=== PATIENT | male | born 1960 | race American Indian/Alaskan Native ===

== ENCOUNTER 2017-10-25 15:15 | Inpatient (IN) | payer OTHER ==
[2017-10-25] MEDS ORDERED: LASIX IV ONE (17:23)
[2017-10-25 17:42] LABS: Basophils # (Auto) 0.1 K/mm3 (0.0-0.1); Basophils % (Auto) 0.4 % (0.0-1.8); Eosinophils # (Auto) 0.1 K/mm3 (0.0-0.4); Eosinophils % (Auto) 0.9 % (0.0-4.3); Hematocrit 39.3 % (35.5-45.6); Hemoglobin 12.9 gm/dl (11.8-15.2); Lymphocytes % (Auto) 6.5 % (13.4-35.0); Mean Corpuscular HGB Conc 33 % (32-34); Mean Corpuscular Hemoglobin 28 pg (28-32); Mean Corpuscular Volume 85 fl (84-94); Monocytes # (Auto) 1.6 K/mm3 (0.0-0.8); Monocytes % (Auto) 10.9 % (0.0-7.3); Platelet Count 328 K/mm3 (140-440); Red Blood Count 4.65 M/mm3 (3.65-5.03); Red Cell Distribution Width 15.1 % (13.2-15.2)
[2017-10-25 17:44] LABS: BUN/Creatinine Ratio 32; Blood Urea Nitrogen 19 mg/dL (9-20); Calcium 9.1 mg/dL (8.4-10.2); Hemolysis Index 87
--- NOTE | 2017-10-25 18:19 | Emergency Department Report ---
ED Shortness of Breath HPI - General Chief Complaint: Dyspnea/Respdistress Stated Complaint: SOB Time Seen by Provider: 10/25/17 16:54 Source: patient Mode of arrival: Ambulatory Limitations: No Limitations - History of Present Illness Initial Comments: 57-year-old male with a past medical history CHF, atrial fibrillation, CAD/[place], hypertension, and AICD presents to the hospital from the cost estimating clerk's office for admission for continued shortness of breath despite multiple recent hospitalizations or outpatient treatment. Patient presents to the hospital with a room air sat of 89% in some mild respiratory distress. He does not take oxygen at home. O2 sat increases to 96-98% on 2 L of oxygen. Positive cough that is "dark in color". Patient denies chest pain, calf tenderness, or leg edema. Patient was sent to the ER by Dr Love for direct admit. His bed was reassigned and therefore patient presented to the ED. - Related Data Home Medications Medication Instructions Recorded Confirmed Last Taken Amlodipine Besylate [Amlodipine 10 mg PO DAILY 05/11/14 05/11/14 05/10/14 Besylate] Ascorbic Acid [Vitamin C] 1,000 mg PO DAILY 05/11/14 05/11/14 05/10/14 Carvedilol [Carvedilol] 12.5 mg PO BID 05/11/14 05/11/14 05/10/14 Digoxin [Digox] 250 mcg PO DAILY 05/11/14 05/11/14 05/10/14 Furosemide [Furosemide] 40 mg PO DAILY 05/11/14 05/11/14 05/10/14 Hydralazine HCl [Apresoline TAB] 50 mg PO BID 05/11/14 05/11/14 05/10/14 Lisinopril [Lisinopril] 20 mg PO BID 05/11/14 05/11/14 05/10/14 Potassium Chloride [Klor-Con 10] 10 meq PO BID 05/11/14 05/11/14 05/10/14 Pravastatin Sodium [Pravastatin 40 mg PO QPM 05/11/14 05/11/14 05/10/14 Sodium] Sotalol HCl [Sotalol] 80 mg PO BID 05/11/14 05/11/14 05/10/14 Ubidecarenone [Coq-10] 10 mg PO DAILY 05/11/14 05/11/14 05/10/14 Vitamin B Complex [Super B-50 1 tab PO DAILY 05/11/14 05/11/14 05/10/14 Complex] Warfarin Sodium [Warfarin Sodium] 5 mg PO 3XW 05/11/14 05/11/14 05/07/14 Warfarin Sodium [Warfarin Sodium] 7 mg PO 4XW 05/11/14 05/11/14 05/06/14 Previous Rx's Medication Instructions Recorded Last Taken Type Meclizine [Antivert] 25 mg PO TID PRN #20 tablet 08/07/16 Unknown Rx Allergies Allergy/AdvReac Type Severity Reaction Status Date / Time No Known Allergies Allergy Verified 05/11/14 10:52 ED Review of Systems ROS: Stated complaint: SOB Other details as noted in HPI Comment: All other systems reviewed and negative Other: Constitutional: No fevers chills or weight loss Eyes: No eye pain visual changes or discharge ENT: No ear pain or throat pain Neck: Denies pain Respiratory: as per hpi Cardiovascular: Denies chest pain, palpitations, syncope GI: Denies abdominal pain, nausea, vomiting, diarrhea : Denies dysuria Musculoskeletal: Denies back pain, joint swelling Skin: Denies rash, lesions, erythema Neurologic: Denies headache, numbness, weakness Psychiatric: Denies suicidal ideation, hallucinations ED Past Medical Hx - Past Medical History Previous Medical History?: Yes Hx Hypertension: Yes Hx Heart Attack/AMI: Yes (1999) Hx Congestive Heart Failure: Yes Additional medical history: A-FIB - Surgical History Past Surgical History?: Yes Hx Pacemaker: Yes (icd 2006) - Social History Smoking Status: Never Smoker Substance Use Type: Alcohol - Medications Home Medications: Home Medications Medication Instructions Recorded Confirmed Last Taken Type Amlodipine Besylate [Amlodipine 10 mg PO DAILY 05/11/14 05/11/14 05/10/14 History Besylate] Ascorbic Acid [Vitamin C] 1,000 mg PO DAILY 05/11/14 05/11/14 05/10/14 History Carvedilol [Carvedilol] 12.5 mg PO BID 05/11/14 05/11/14 05/10/14 History Digoxin [Digox] 250 mcg PO DAILY 05/11/14 05/11/14 05/10/14 History Furosemide [Furosemide] 40 mg PO DAILY 0705/11/14 05/10/14 History Hydralazine HCl [Apresoline TAB] 50 mg PO BID 05/11/14 05/11/14 05/10/14 History Lisinopril [Lisinopril] 20 mg PO BID 05/11/14 05/11/14 05/10/14 History Potassium Chloride [Klor-Con 10] 10 meq PO BID 05/11/14 05/11/14 05/10/14 History Pravastatin Sodium [Pravastatin 40 mg PO QPM 05/11/14 05/11/14 05/10/14 History Sodium] Sotalol HCl [Sotalol] 80 mg PO BID 05/11/14 05/11/14 05/10/14 History Ubidecarenone [Coq-10] 10 mg PO DAILY 05/11/14 05/11/14 05/10/14 History Vitamin B Complex [Super B-50 1 tab PO DAILY 05/11/14 05/11/14 05/10/14 History Complex] Warfarin Sodium [Warfarin Sodium] 5 mg PO 3XW 05/11/14 05/11/14 05/07/14 History Warfarin Sodium [Warfarin Sodium] 7 mg PO 4XW 05/11/14 05/11/14 05/06/14 History Meclizine [Antivert] 25 mg PO TID PRN #20 tablet 08/07/16 Unknown Rx ED Physical Exam - General Limitations: No Limitations - Other Other exam information: General: No limitations, patient is alert in no acute distress Head exam: Atraumatic, normocephalic Eyes exam: Normal appearance ENT: Moist mucous membrane, normal oropharynx Neck exam: Normal inspection, full range of motion, no meningismus nontender Respiratory exam: Diminished breath sounds right base, mild bilateral expiratory wheeze, mild tachypnea and accessory muscle use Cardiovascular: Normal rate and rhythm, normal heart sounds Abdomen: Soft, nondistended, and nontender, with normal bowel sounds, no rebound, or guarding Extremity: Full range of motion normal inspection no deformity, no calf tenderness or edema Back: Normal Inspection, full range of motion, no tenderness Neurologic: Alert, oriented x3, cranial nerves intact, no motor or sensory deficit Psychiatric: normal affect, normal mood Skin: Warm, dry, intact ED Course Vital Signs 10/25/17 16:18 Temperature 98.4 F Pulse Rate 96 H Respiratory 24 Rate Blood Pressure 143/81 O2 Sat by Pulse 89 Oximetry - Reevaluation(s) Reevaluation #1: 10/25/17 18:18 Lasix 80 mg ordered ED Medical Decision Making - Lab Data Result diagrams: 10/25/17 16:52 10/25/17 18:06 Lab Results 10/25/17 10/25/17 10/25/17 Range/Units 16:52 16:52 18:06 WBC 15.2 H (4.5-11.0) K/mm3 RBC 4.65 (3.65-5.03) M/mm3 Hgb 12.9 (11.8-15.2) gm/dl Hct 39.3 (35.5-45.6) % MCV 85 (84-94) fl MCH 28 (28-32) pg MCHC 33 (32-34) % RDW 15.1 (13.2-15.2) % Plt Count 328 (140-440) K/mm3 Lymph % (Auto) 6.5 L (13.4-35.0) % [place] % (Auto) 10.9 H (0.0-7.3) % Eos % (Auto) 0.9 (0.0-4.3) % Baso % (Auto) 0.4 (0.0-1.8) % Lymph # 1.0 L (1.2-5.4) K/mm3 [place] # 1.6 H (0.0-0.8) K/mm3 Eos # 0.1 (0.0-0.4) K/mm3 Baso # 0.1 (0.0-0.1) K/mm3 Seg Neutrophils % 81.3 H (40.0-70.0) % Seg Neutrophils # 12.3 H (1.8-7.7) K/mm3 PT 16.2 H (12.2-14.9) Sec. INR 1.23 H (0.87-1.13) APTT 39.4 H (24.2-36.6) Sec. Sodium 132 L (137-145) mmol/L Potassium 6.6 H* (3.6-5.0) mmol/L Chloride 88.5 L (98-107) mmol/L Carbon Dioxide 27 (22-30) mmol/L Anion Gap 23 mmol/L BUN 19 (9-20) mg/dL Creatinine 0.6 L (0.8-1.5) mg/dL Estimated GFR > 60 ml/min BUN/Creatinine Ratio 32 % Glucose 112 H (75-100) mg/dL Calcium 9.1 (8.4-10.2) mg/dL Total Creatine Kinase (55-170) units/L CK-MB (CK-2) (0.0-4.0) ng/mL CK-MB (CK-2) Rel Index (0-4) Troponin T (0.00-0.029) ng/mL NT-Pro-B Natriuret Pep (0-900) pg/mL 10/25/17 10/25/17 Range/Units 18:06 18:06 WBC (4.5-11.0) K/mm3 RBC (3.65-5.03) M/mm3 Hgb (11.8-15.2) gm/dl Hct (35.5-45.6) % MCV (84-94) fl MCH (28-32) pg MCHC (32-34) % RDW (13.2-15.2) % Plt Count (140-440) K/mm3 Lymph % (Auto) (13.4-35.0) % [place] % (Auto) (0.0-7.3) % Eos % (Auto) (0.0-4.3) % Baso % (Auto) (0.0-1.8) % Lymph # (1.2-5.4) K/mm3 [place] # (0.0-0.8) K/mm3 Eos # (0.0-0.4) K/mm3 Baso # (0.0-0.1) K/mm3 Seg Neutrophils % (40.0-70.0) % Seg Neutrophils # (1.8-7.7) K/mm3 PT (12.2-14.9) Sec. INR (0.87-1.13) APTT (24.2-36.6) Sec. Sodium (137-145) mmol/L Potassium 6.4 H* (3.6-5.0) mmol/L Chloride (98-107) mmol/L Carbon Dioxide (22-30) mmol/L Anion Gap mmol/L BUN (9-20) mg/dL Creatinine (0.8-1.5) mg/dL Estimated GFR ml/min BUN/Creatinine Ratio % Glucose (75-100) mg/dL Calcium (8.4-10.2) mg/dL Total Creatine Kinase 88 (55-170) units/L CK-MB (CK-2) 2.7 (0.0-4.0) ng/mL CK-MB (CK-2) Rel Index 3.0 (0-4) Troponin T < 0.010 (0.00-0.029) ng/mL NT-Pro-B Natriuret Pep 5652 H (0-900) pg/mL - EKG Data -: EKG Interpreted by Me (pvc's, ant q waves) EKG shows normal: sinus rhythm, axis (-18), QRS complexes (103), ST-T waves ( lat t inv and st depres, lvh) Rate: tachycardia (106) - EKG Data When compared to previous EKG there are: no significant change (compared to ) - Radiology Data Radiology results: image reviewed (cxr read by me: moderate right effusion, cmg) - Medical Decision Making Plan to admit pt for sob secondary to CHF with significant right pleural effusion Patient has hyperkalemia medication initiated with exception of calcium chloride since patient takes digoxin Hospitalist and cardiology informed - Differential Diagnosis chf, pe, pneumonia, effusion, mi, unstable angina Critical Care Time: No Critical care attestation.: If time is entered above; I have spent that time in minutes in the direct care of this critically ill patient, excluding procedure time. ED Disposition Clinical Impression: CHF exacerbation, Hyperkalemia, AICD (automatic cardioverter/defibrillator) present, Non-ischemic cardiomyopathy, Pleural effusion, right Disposition: OP ADMIT IP TO THIS HOSP Is pt being admited?: Yes Condition: Stable Time of Disposition: 18:57 (Dr Morris/hosp)
--- NOTE | 2017-10-25 18:31 | XRay Report ---
FINAL REPORT EXAM: XR CHEST 1V AP HISTORY: SOB TECHNIQUE: AP portable view of the chest PRIORS: None. FINDINGS: Lines, tubes, and devices: A dual lead left subclavian pacemaker terminates in the right atrium and right ventricle. Lungs and pleura: Trachea is normal in position. There is a large right pleural effusion encompassing 1/2 of the right hemithorax extending up the lateral chest wall to the apex. Findings suggest a partially loculated effusion. Underlying consolidation in the right base is not excluded. Left lung is clear of infiltrate, pleural effusion, vascular congestion, or pneumothorax. Cardiomediastinal silhouette: The heart is markedly enlarged. Other: Bony structures are intact. IMPRESSION: 1. Large right pleural effusion which is likely partially loculated. Underlying consolidation right base is not excluded. 2. Cardiomegaly
[2017-10-25 18:35] LABS: INR 1.23 (0.87-1.13)
[2017-10-25 18:41] LABS: Creatine Kinase MB 2.7 ng/mL (0.0-4.0)
[2017-10-25 18:47] LABS: Partial Thromboplastin Time 39.4 Sec. (24.2-36.6)
[2017-10-25] MEDS ORDERED: PROVENTIL IH ONE (18:51)
[2017-10-25] MEDS ORDERED: D50W (25GM) Syringe IV ONE (18:53)
[2017-10-25] MEDS ORDERED: KIONEX PO ONE (18:53)
[2017-10-25] MEDS ORDERED: SODIUM BICARBONATE IV ONE ×2 (18:53→19:00)
[2017-10-25] MEDS ORDERED: ZOFRAN IV PRN (19:58)
[2017-10-25] MEDS ORDERED: TYLENOL PO PRN (19:58)
[2017-10-25] MEDS ORDERED: PROVENTIL IH PRN (19:58)
--- NOTE | 2017-10-25 19:58 | History and Physical Report ---
History of Present Illness Chief complaint: I cant breathe History of present illness: 57 YO Male with CHF, Atrial Fib, HTN, [place], CAD, CHF presents to ED for evaluation. Pt Initially planned for direct admission at the request of Dr. Love, However patient became hypoxemic in triage with Sao2 of 88% and complained of worsening shortness of breath. Pt states that he has experienced persistent shortness of breath over the past 2 weeks with worsening symptoms over the past 4 days. Pt acknowledges productive cough with dark sputum. Pt denies fever, chills, palpitations, NVD, Syncope, unintentional weight loss, night sweats, CP, leg swelling, calf pain, prolonged travel/immobility, individual/family history of DVT/PE. Pt seen and evaluated in ED and found to have Acute Hypoxemic respiratory failure, suspected secondary to CHF as well as Right pleural effusion, and hyperkalemia. Pt treated with supportive care and admitted to telemetry. Cardiology team consulted in ED. Past History Past Medical History: acute [place], atrial fib, CAD, heart failure, hypertension Past Surgical History: Other (AICD) Social history: single. denies: smoking, alcohol abuse, prescription drug abuse Family history: hypertension Medications and Allergies Allergies Allergy/AdvReac Type Severity Reaction Status Date / Time No Known Allergies Allergy Verified 05/11/14 10:52 Home Medications Medication Instructions Recorded Confirmed Last Taken Type Amlodipine Besylate [Amlodipine 10 mg PO DAILY 05/11/14 10/25/17 05/10/14 History Besylate] Ascorbic Acid [Vitamin C] 1,000 mg PO DAILY 05/11/14 10/25/17 05/10/14 History Carvedilol [Carvedilol] 12.5 mg PO BID 05/11/14 10/25/17 05/10/14 History Digoxin [Digox] 250 mcg PO DAILY 05/11/14 10/25/17 05/10/14 History Furosemide [Furosemide] 40 mg PO DAILY 05/11/14 10/25/17 05/10/14 History Hydralazine HCl [Apresoline TAB] 50 mg PO BID 05/11/14 10/25/17 05/10/14 History Lisinopril [Lisinopril] 20 mg PO BID 05/11/14 10/25/17 05/10/14 History Potassium Chloride [Klor-Con 10] 10 meq PO BID 05/11/14 10/25/17 05/10/14 History Pravastatin Sodium [Pravastatin 40 mg PO QPM 05/11/14 10/25/17 05/10/14 History Sodium] Sotalol HCl [Sotalol] 80 mg PO BID 05/11/14 10/25/17 05/10/14 History Ubidecarenone [Coq-10] 10 mg PO DAILY 05/11/14 10/25/17 05/10/14 History Vitamin B Complex [Super B-50 1 tab PO DAILY 05/11/14 10/25/17 05/10/14 History Complex] Warfarin Sodium [Warfarin Sodium] 5 mg PO 3XW 05/11/14 10/25/17 05/07/14 History Meclizine [Antivert] 25 mg PO TID PRN #20 tablet 08/07/16 10/25/17 Unknown Rx Review of Systems Constitutional: no weight loss, no weight gain, no fever, no chills Ears, nose, mouth and throat: no ear pain, no ear discharge, no tinnitis, no decreased hearing, no nose pain Cardiovascular: shortness of breath, leg edema, no chest pain, no orthopnea, no palpitations Respiratory: cough with sputum, no dyspnea on exertion, no wheezing, no pleurisy , no pain on inspiration Gastrointestinal: no abdominal pain, no nausea, no vomiting, no diarrhea Genitourinary Male: no hematuria, no flank pain, no discharge, no urinary frequency, no urinary hesitancy Rectal: no pain, no incontinence, no bleeding Musculoskeletal: no neck stiffness, no neck pain, no shooting arm pain, no arm numbness/tingling, no low back pain Integumentary: no rash, no pruritis, no redness, no sores, no wounds Neurological: no head injury, no transient paralysis, no paralysis, no weakness , no parathesias, no numbness Psychiatric: no anxiety, no memory loss, no change in sleep habits, no sleep disturbances, no insomnia, no hypersomnia Endocrine: no cold intolerance, no heat intolerance, no polyphagia, no excessive thirst, no polydipsia, no polyuria Hematologic/Lymphatic: no easy bruising, no easy bleeding, no lymphadenopathy, no lymphedema Allergic/Immunologic: no urticaria, no allergic rhinitis, no wheezing, no persistent infections Exam - Constitutional Vitals: Temp Pulse Resp BP Pulse Ox 98.4 F 96 H 24 143/81 89 10/25/17 16:18 10/25/17 16:18 10/25/17 16:18 10/25/17 16:18 10/25/17 16:18 General appearance: Present: mild distress - EENT Eyes: Present: PERRL ENT: hearing intact, clear oral mucosa - Neck Neck: Present: supple, normal ROM - Respiratory Respiratory effort: labored Respiratory: bilateral: diminished, rales - Cardiovascular Rhythm: irregularly irregular - Extremities Extremities: pulses symmetrical, No edema Extremity abnormal: edema Peripheral Pulses: within normal limits - Abdominal General gastrointestinal: Present: soft, non-tender, non-distended, normal bowel sounds Male genitourinary: Present: normal - Integumentary Integumentary: Present: clear, warm, dry - Musculoskeletal Musculoskeletal: gait normal, strength equal bilaterally - Psychiatric Psychiatric: appropriate mood/affect, intact judgment & insight - Neurologic Neurologic: CNII-XII intact, moves all extremities Results - Labs CBC & Chem 7: 10/25/17 16:52 10/25/17 18:06 Labs: Abnormal lab results 10/25/17 10/25/17 10/25/17 Range/Units 16:52 16:52 18:06 WBC 15.2 H (4.5-11.0) K/mm3 Lymph % (Auto) 6.5 L (13.4-35.0) % [place] % (Auto) 10.9 H (0.0-7.3) % Lymph # 1.0 L (1.2-5.4) K/mm3 [place] # 1.6 H (0.0-0.8) K/mm3 Seg Neutrophils % 81.3 H (40.0-70.0) % Seg Neutrophils # 12.3 H (1.8-7.7) K/mm3 PT 16.2 H (12.2-14.9) Sec. INR 1.23 H (0.87-1.13) APTT 39.4 H (24.2-36.6) Sec. Sodium 132 L (137-145) mmol/L Potassium 6.6 H* (3.6-5.0) mmol/L Chloride 88.5 L (98-107) mmol/L Creatinine 0.6 L (0.8-1.5) mg/dL Glucose 112 H (75-100) mg/dL NT-Pro-B Natriuret Pep (0-900) pg/mL 10/25/17 10/25/17 Range/Units 18:06 18:06 WBC (4.5-11.0) K/mm3 Lymph % (Auto) (13.4-35.0) % [place] % (Auto) (0.0-7.3) % Lymph # (1.2-5.4) K/mm3 [place] # (0.0-0.8) K/mm3 Seg Neutrophils % (40.0-70.0) % Seg Neutrophils # (1.8-7.7) K/mm3 PT (12.2-14.9) Sec. INR (0.87-1.13) APTT (24.2-36.6) Sec. Sodium (137-145) mmol/L Potassium 6.4 H* (3.6-5.0) mmol/L Chloride (98-107) mmol/L Creatinine (0.8-1.5) mg/dL Glucose (75-100) mg/dL NT-Pro-B Natriuret Pep 5652 H (0-900) pg/mL Assessment and Plan - Patient Problems (1) CHF exacerbation Current Visit: Yes Status: Acute Qualifiers: Congestive heart failure type: systolic Qualified Code(s): I50.23 - Acute on chronic systolic (congestive) heart failure Plan to address problem: Cardiology consulted, fluid restriction, monitor uop q shift, afterload reduction, admit to telemetry, cardiac enzymes, ekg,supplemental oxygen, diuresis, echo, (2) Acute hypoxemic respiratory failure Current Visit: Yes Status: Acute Plan to address problem: Supplemental oxygen, Nebulizer therapy, NIPPV as clinically indicated, pulmonary toilet, diuresis, (3) Pneumonia Current Visit: Yes Status: Suspected Qualifiers: Laterality: right Plan to address problem: IV ABX, supplemental oxygen, nebulizer therapy for suspected pneumonia (4) Hyperkalemia Current Visit: Yes Status: Acute Plan to address problem: Calcium chloride, lasix therapy, NO EKG changes, repeat bmp, (5) Pleural effusion, right Current Visit: Yes Status: Acute Plan to address problem: Chest X ray, diuresis, supportive care, repeat chest imaging, will consider Right Lateral Decubitus Chest xray versus CT chest in AM, serial physical exam. (6) Atrial fibrillation Current Visit: Yes Status: Acute Qualifiers: Atrial fibrillation type: chronic Qualified Code(s): I48.2 - Chronic atrial fibrillation Plan to address problem: Telemetry monitoring, Resume therapeutic anticoagulation, continue rate control therapy (7) DVT prophylaxis Current Visit: Yes Status: Acute
[2017-10-25] MEDS ORDERED: COUMADIN PO SCH (21:00)
--- NOTE | 2017-10-25 21:04 | Consultation ---
History of Present Illness Consult date: 10/25/17 Consult reason: congestive heart failure, shortness of breath History of present illness: 57-year-old male with a past medical history CHF, parox atrial fibrillation, CAD /[place], hypertension, and AICD presents to the hospital from the mortgage clerk's office for admission for continued shortness of breath despite multiple recent hospitalizations or outpatient treatment. Patient presents to the hospital with a room air sat of 89% in some mild respiratory distress. He does not take oxygen at home. O2 sat increases to 96-98% on 2 L of oxygen. Positive cough that is "dark in color". Patient denies chest pain, calf tenderness, or leg edema. Patient was sent to the ER by Dr Love for direct admit. His bed was reassigned and therefore patient presented to the ED. Labs revealed wbc of 15k and potassium of 6.4 Past History Past Medical History: acute [place], atrial fib, heart failure, hypertension Past Surgical History: Other (aicd) Medications and Allergies Allergies Allergy/AdvReac Type Severity Reaction Status Date / Time No Known Allergies Allergy Verified 05/11/14 10:52 Home Medications Medication Instructions Recorded Confirmed Last Taken Type Amlodipine Besylate [Amlodipine 10 mg PO DAILY 05/11/14 10/25/17 05/10/14 History Besylate] Ascorbic Acid [Vitamin C] 1,000 mg PO DAILY 05/11/14 10/25/17 05/10/14 History Carvedilol [Carvedilol] 12.5 mg PO BID 05/11/14 10/25/17 05/10/14 History Digoxin [Digox] 250 mcg PO DAILY 05/11/14 10/25/17 05/10/14 History Furosemide [Furosemide] 40 mg PO DAILY 05/11/14 10/25/17 05/10/14 History Hydralazine HCl [Apresoline TAB] 50 mg PO BID 05/11/14 10/25/17 05/10/14 History Lisinopril [Lisinopril] 20 mg PO BID 05/11/14 10/25/17 05/10/14 History Potassium Chloride [Klor-Con 10] 10 meq PO BID 05/11/14 10/25/17 05/10/14 History Pravastatin Sodium [Pravastatin 40 mg PO QPM 05/11/14 10/25/17 05/10/14 History Sodium] Sotalol HCl [Sotalol] 80 mg PO BID 05/11/14 10/25/17 05/10/14 History Ubidecarenone [Coq-10] 10 mg PO DAILY 05/11/14 10/25/17 05/10/14 History Vitamin B Complex [Super B-50 1 tab PO DAILY 05/11/14 10/25/17 05/10/14 History Complex] Warfarin Sodium [Warfarin Sodium] 5 mg PO 3XW 05/11/14 10/25/17 05/07/14 History Meclizine [Antivert] 25 mg PO TID PRN #20 tablet 08/07/16 10/25/17 Unknown Rx Active Meds: Active Medications Acetaminophen (Tylenol) 650 mg PO Q4H PRN PRN Reason: Pain MILD(1-3)/Fever >100.5/DUNCAN Albuterol (Proventil) 2.5 mg IH Q4HRT PRN PRN Reason: Shortness Of Breath Amlodipine Besylate (Norvasc) 10 mg PO DAILY [facility] Ascorbic Acid (Vitamin C) 1,000 mg PO QDAY [facility] Carvedilol (Coreg) 12.5 mg PO BID [facility] Digoxin (Lanoxin) 0.25 mg PO DAILY [facility] Famotidine (Pepcid) 10 mg PO BID [facility] Furosemide (Lasix) 40 mg IV BID@0600,1800 [facility] Hydralazine HCl (Apresoline) 50 mg PO BID [facility] Lisinopril (Zestril) 20 mg PO BID [facility] Meclizine HCl (Antivert) 25 mg PO TID PRN PRN Reason: Vertigo Miscellaneous Medication (Ubidecarenone [Coq-10]) 10 mg PO DAILY [facility] Ondansetron HCl (Zofran) 4 mg IV Q8H PRN PRN Reason: N/V unrelieved by Reglan Pravastatin Sodium (Pravachol) 40 mg PO QPM [facility] Sotalol HCl (Betapace) 80 mg PO Q12HR [facility] Vitamin B Complex/Vitamin C ([place] With C) 1 each PO QDAY [facility] Warfarin Sodium (Coumadin) 7.5 mg PO DAILY@1700 [facility] Review of Systems Constitutional: no fever, no chills Eyes: bilateral: blurred vision (denies) Ears, nose, mouth and throat: no epistaxis Cardiovascular: no palpitations, no syncope Respiratory: no hemoptysis Gastrointestinal: no abdominal pain Genitourinary Male: no flank pain Musculoskeletal: no frequent falls Integumentary: no rash Neurological: no seizures Psychiatric: no anxiety Endocrine: no cold intolerance, no heat intolerance Hematologic/Lymphatic: no easy bruising Allergic/Immunologic: no urticaria Physical Examination Vital Signs Temp Pulse Resp BP Pulse Ox 98.4 F 96 H 24 143/81 89 10/25/17 16:18 10/25/17 16:18 10/25/17 16:18 10/25/17 16:18 10/25/17 16:18 General appearance: no acute distress HEENT: Positive: PERRL, Normocephaly Neck: Positive: neck supple, Carotid Upstroke (2+ bilat). Negative: JVD/HJR, Bruit Cardiac: Positive: Regular Rhythm, Other (occ ectopy). Negative: S3, Audible Murmur Lungs: Positive: Decreased Breath Sounds (rt base) Neuro: Positive: Grossly Intact Abdomen: Positive: Soft. Negative: Tender Skin: Positive: Clear Musculoskeletal: Normal Range of Motion Extremities: Present: Other (peripheral pulses intact). Absent: Clubbing, Cyanosis Results 10/25/17 16:52 10/25/17 18:06 Cardiac Enzymes 10/25/17 Range/Units 18:06 CK-MB (CK-2) 2.7 (0.0-4.0) ng/mL Coagulation 10/25/17 Range/Units 18:06 PT 16.2 H (12.2-14.9) Sec. INR 1.23 H (0.87-1.13) APTT 39.4 H (24.2-36.6) Sec. CBC 10/25/17 Range/Units 16:52 WBC 15.2 H (4.5-11.0) K/mm3 RBC 4.65 (3.65-5.03) M/mm3 Hgb 12.9 (11.8-15.2) gm/dl Hct 39.3 (35.5-45.6) % Plt Count 328 (140-440) K/mm3 Lymph # 1.0 L (1.2-5.4) K/mm3 [place] # 1.6 H (0.0-0.8) K/mm3 Eos # 0.1 (0.0-0.4) K/mm3 Baso # 0.1 (0.0-0.1) K/mm3 Comprehensive Metabolic Panel 10/25/17 10/25/17 Range/Units 16:52 18:06 Sodium 132 L (137-145) mmol/L Potassium 6.6 H* 6.4 H* (3.6-5.0) mmol/L Chloride 88.5 L (98-107) mmol/L Carbon Dioxide 27 (22-30) mmol/L BUN 19 (9-20) mg/dL Creatinine 0.6 L (0.8-1.5) mg/dL Glucose 112 H (75-100) mg/dL Calcium 9.1 (8.4-10.2) mg/dL EKG interpretations - Telemetry EKG Rhythm: Sinus Rhythm - EKG Supraventricular dysrhythmia: atrial premature complexe Chamber hypertrophy or enlargement: left ventricular hypertro Repolarization changes or abnormalities: repolarization abn secondary to ventricular hypertrophy Assessment and Plan acute/chronic systolic heart failure with reduced lv ef s/p aicd implantation parox atrial fibrillation, ppresently in sinus rhythm. tele: 18 beat run nonsustained vt hyperkalemia right pleural effusion Plan: treat hyperkalemia has has been done. continue anticoagulation. diuresis. ?thoracentesis check digoxin level
[2017-10-25] MEDS ORDERED: NON-FORMULARY (Hydralazine Hcl [Apresoline Tab] 50 MG) PO SCH (22:00)
[2017-10-25] MEDS ORDERED: [UNRECOGNIZED DRUG - OTHER] PO SCH (22:00)
[2017-10-25] MEDS: COUMADIN PO SCH (22:26)
[2017-10-25] MEDS: PEPCID PO SCH (22:26)
[2017-10-25] MEDS: BETAPACE PO SCH (22:26)
[2017-10-25] MEDS: COREG PO SCH (22:27)
[2017-10-25] MEDS: ZESTRIL PO SCH (22:27)
[2017-10-25] MEDS: APRESOLINE PO SCH (22:29)
[2017-10-26] MEDS: LASIX IV SCH ×2 (06:17→17:51)
[2017-10-26 06:55] LABS: INR 1.3 (0.87-1.13)
[2017-10-26] MEDS ORDERED: ZITHROMAX 500 MG in NACL 0.9% 250ML 250 ML IV SCH ×2 (08:00→09:00)
[2017-10-26] MEDS ORDERED: ROCEPHIN/NS 1 GM/50 ML 1 GM/50 ML BAG IV SCH (08:00)
[2017-10-26] MEDS: BETAPACE PO SCH ×2 (09:25→21:29)
[2017-10-26] MEDS: PEPCID PO SCH ×2 (09:27→21:29)
[2017-10-26] MEDS: COREG PO SCH ×2 (09:27→21:30)
[2017-10-26] MEDS: VITAMIN C PO SCH (09:27)
[2017-10-26] MEDS: APRESOLINE PO SCH ×2 (09:27→21:30)
[2017-10-26] MEDS: ZESTRIL PO SCH ×2 (09:28→21:30)
[2017-10-26] MEDS: NORVASC PO SCH (09:28)
[2017-10-26 09:56] LABS: BUN/Creatinine Ratio 22; Blood Urea Nitrogen 13 mg/dL (9-20); Hemolysis Index 4
[2017-10-26] MEDS ORDERED: LANOXIN PO SCH (10:00)
[2017-10-26] MEDS ORDERED: UBIDECARENONE 10 MG PO SCH (10:00)
[2017-10-26] MEDS ORDERED: NON-FORMULARY (Ascorbic Acid [Vitamin C] 1,000 MG) PO SCH (10:00)
[2017-10-26] MEDS ORDERED: VITAMIN B COMPLEX PO SCH (10:00)
[2017-10-26] MEDS ORDERED: COUMADIN PO SCH (10:00)
[2017-10-26] MEDS ORDERED: cefTRIAXone 1 GM in NACL 0.9% 20 ML IV SCH (10:00)
--- NOTE | 2017-10-26 10:35 | Consultation ---
History of Present Illness Consult date: 10/26/17 Requesting physician: HODA WALTERS Reason for consult: pleural effusion History of present illness: 57 y/o female with CHF, admitted with worsening shortness of breath. Found to have large right sided pleural effusion. Unfortunately I am not able to see the actual films. Per report, rads says it is partially loculated. Patient states today that he feels much better, less short of breath. Past History Past Medical History: acute AR, atrial fib, heart failure, hypertension Past Surgical History: Other (aicd) Social history: single. denies: smoking, alcohol abuse, prescription drug abuse Family history: hypertension Medications and Allergies Allergies Allergy/AdvReac Type Severity Reaction Status Date / Time No Known Allergies Allergy Verified 05/11/14 10:52 Home Medications Medication Instructions Recorded Confirmed Last Taken Type Amlodipine Besylate [Amlodipine 10 mg PO DAILY 05/11/14 10/25/17 05/10/14 History Besylate] Ascorbic Acid [Vitamin C] 1,000 mg PO DAILY 05/11/14 10/25/17 05/10/14 History Carvedilol [Carvedilol] 12.5 mg PO BID 05/11/14 10/25/17 05/10/14 History Digoxin [Digox] 250 mcg PO DAILY 05/11/14 10/25/17 05/10/14 History Furosemide [Furosemide] 40 mg PO DAILY 05/11/14 10/25/17 05/10/14 History Hydralazine HCl [Apresoline TAB] 50 mg PO BID 05/11/14 10/25/17 05/10/14 History Lisinopril [Lisinopril] 20 mg PO BID 05/11/14 10/25/17 05/10/14 History Potassium Chloride [Klor-Con 10] 10 meq PO BID 05/11/14 10/25/17 05/10/14 History Pravastatin Sodium [Pravastatin 40 mg PO QPM 05/11/14 10/25/17 05/10/14 History Sodium] Sotalol HCl [Sotalol] 80 mg PO BID 05/11/14 10/25/17 05/10/14 History Ubidecarenone [Coq-10] 10 mg PO DAILY 05/11/14 10/25/17 05/10/14 History Vitamin B Complex [Super B-50 1 tab PO DAILY 05/11/14 10/25/17 05/10/14 History Complex] Warfarin Sodium [Warfarin Sodium] 5 mg PO 3XW 05/11/14 10/25/17 05/07/14 History Meclizine [Antivert] 25 mg PO TID PRN #20 tablet 08/07/16 10/25/17 Unknown Rx Active Meds: Active Medications Acetaminophen (Tylenol) 650 mg PO Q4H PRN PRN Reason: Pain MILD(1-3)/Fever >100.5/[place] Albuterol (Proventil) 2.5 mg IH Q4HRT PRN PRN Reason: Shortness Of Breath Amlodipine Besylate (Norvasc) 10 mg PO DAILY [facility] Last Admin: 10/26/17 09:28 Dose: 10 mg Ascorbic Acid (Vitamin C) 1,000 mg PO QDAY [facility] Last Admin: 10/26/17 09:27 Dose: 1,000 mg Carvedilol (Coreg) 12.5 mg PO BID [facility] Last Admin: 10/26/17 09:27 Dose: 12.5 mg Digoxin (Lanoxin) 0.25 mg PO DAILY [facility] Last Admin: 10/26/17 09:26 Dose: 0.25 mg Famotidine (Pepcid) 10 mg PO BID [facility] Last Admin: 10/26/17 09:27 Dose: 10 mg Furosemide (Lasix) 40 mg IV BID@0600,1800 [facility] Last Admin: 10/26/17 06:17 Dose: 40 mg Hydralazine HCl (Apresoline) 50 mg PO BID [facility] Last Admin: 10/26/17 09:27 Dose: 50 mg Levofloxacin/Dextrose (Levaquin 750mg/150ml) 750 mg in 150 mls @ 100 mls/hr IV Q24HR [facility] PRN Reason: Protocol Lisinopril (Zestril) 20 mg PO BID [facility] Last Admin: 10/26/17 09:28 Dose: 20 mg Meclizine HCl (Antivert) 25 mg PO TID PRN PRN Reason: Vertigo Ondansetron HCl (Zofran) 4 mg IV Q8H PRN PRN Reason: N/V unrelieved by [facility] Pravastatin Sodium (Pravachol) 40 mg PO QPM [facility] Sotalol HCl (Betapace) 80 mg PO Q12HR [facility] Last Admin: 10/26/17 09:25 Dose: 80 mg Vitamin B Complex/Vitamin C ([place]bee With C) 1 each PO QDAY [facility] Warfarin Sodium (Coumadin) 7.5 mg PO DAILY@1700 [facility] Last Admin: 10/25/17 22:26 Dose: 7.5 mg Physical Examination Vital signs: Vital Signs Temp Pulse Resp BP Pulse Ox 98.4 F 96 H 24 143/81 89 10/25/17 16:18 10/25/17 16:18 10/25/17 16:18 10/25/17 16:18 10/25/17 16:18 General appearance: no acute distress, alert Eyes: non-icteric ENT: oropharynx moist Neck: supple Ascultation: Right: diminished breath sounds, rales (base), Left: clear Results - Laboratory Findings CBC and BMP: 10/25/17 16:52 10/26/17 09:32 PT/INR, D-dimer PT 16.9 Sec. (12.2-14.9) H 10/26/17 06:14 INR 1.30 (0.87-1.13) H 10/26/17 06:14 Abnormal lab findings: Abnormal Labs 10/25/17 10/25/17 10/25/17 16:52 16:52 18:06 WBC 15.2 H Lymph % (Auto) 6.5 L [place] % (Auto) 10.9 H Lymph # 1.0 L [place] # 1.6 H Seg Neutrophils % 81.3 H Seg Neutrophils # 12.3 H PT 16.2 H INR 1.23 H APTT 39.4 H Sodium 132 L Potassium 6.6 H* Chloride 88.5 L Carbon Dioxide Creatinine 0.6 L Glucose 112 H NT-Pro-B Natriuret Pep 10/25/17 10/25/17 10/26/17 18:06 18:06 06:14 WBC Lymph % (Auto) [place] % (Auto) Lymph # [place] # Seg Neutrophils % Seg Neutrophils # PT 16.9 H INR 1.30 H APTT Sodium Potassium 6.4 H* Chloride Carbon Dioxide Creatinine Glucose NT-Pro-B Natriuret Pep 5652 H 10/26/17 09:32 WBC Lymph % (Auto) [place] % (Auto) Lymph # [place] # Seg Neutrophils % Seg Neutrophils # PT INR APTT Sodium Potassium Chloride 94.0 L Carbon Dioxide 34 H D Creatinine 0.6 L Glucose 129 H NT-Pro-B Natriuret Pep Assessment and Plan 57 y/o female with CHF and right sided pleural effusion 1. Need to call radiology and ask why film cannot be seen in [employer] 2. May need CT of chest if truly loculated, hold for now as he is feeling better 3. Not opposed to thoracentesis, but would suggest diuresis first. Appears that patient is tolerating this. Will repeat CXR tomorrow. If this is infected , which it could be, would need chest tube placement, but will hold on any invasive therapy for now.
[2017-10-26] MEDS: ALLBEE WITH C PO SCH (10:56)
[2017-10-26] MEDS: LEVAQUIN 750MG/150ML 750 MG/150 ML BAG IV SCH (10:58)
[2017-10-26 11:16] LABS: BUN/Creatinine Ratio 20; Blood Urea Nitrogen 14 mg/dL (9-20); Calcium 9.3 mg/dL (8.4-10.2); Hemolysis Index 11
--- NOTE | 2017-10-26 12:56 | Cat Scan Report ---
CT scan of chest without IV contrast: History: Right-sided loculated pleural effusion. Findings: There is no endobronchial lesion identified. No mediastinal adenopathy. No pericardial effusion. There is extensive pleural thickening noted along the right lateral chest extending to the apex and right mediastinum. Loculated areas of pleural fluid is identified along the pleural thickening. No definite consolidation or mass in underlying lung parenchyma. Left lung appears unremarkable. Impression: Extensive right pleural thickening with areas of loculation of fluid along pleural thickening. Grossly adjacent liver spleen and pancreas appears unremarkable.
--- NOTE | 2017-10-26 15:22 | Progress Note ---
Assessment and Plan Assessment and plan: (1) CHF exacerbation - On IV Lasix, and continue appropriate CHF medications - Cardiology following (2) Acute hypoxemic respiratory failure - Likely due to the large right pleural effusion versus CHF - Pulmonary consulted and patient may need to thoracentesis (3) Pneumonia - Patient is on IV antibiotics (4) Hyperkalemia - Treated with hyperkalemia (5) Pleural effusion, right - Pulmonary consulted - CT chest done for further evaluation of this effusion (6) Atrial fibrillation - Patient is on anticoagulation (7) DVT prophylaxis - Continue anticoagulation Disposition - Continue inpatient care History Interval history: Patient was seen and evaluated this morning, he said SOB is getting better. Hospitalist Physical - Physical exam Narrative exam: Not in cardiopulmonary distress. The patient appeared well nourished and normally developed. Vital signs as documented. Head exam is unremarkable. No scleral icterus . Neck is without jugular venous distension, thyromegaly, or carotid bruits. Lungs dullness and decreased air entry on the right lower lung zone. Cardiac exam reveals regular rate and Rhythm. First and second heart sounds normal. No murmurs, rubs or gallops. Abdominal exam reveals normal bowel sounds, no masses, no organomegaly and no aortic enlargement. Extremities are nonedematous and both femoral and pedal pulses are normal. [employer]: Alert and oriented 3. No focal weakness. - Constitutional Vitals: Temp Pulse Resp BP Pulse Ox 98.2 F 83 20 115/83 98 10/26/17 09:57 10/26/17 09:57 10/26/17 09:57 10/26/17 09:57 10/26/17 10:00 General appearance: Present: no acute distress Results - Labs CBC & Chem 7: 10/25/17 16:52 10/26/17 10:29 Labs: Laboratory Last Values WBC 15.2 K/mm3 (4.5-11.0) H 10/25/17 16:52 RBC 4.65 M/mm3 (3.65-5.03) 10/25/17 16:52 Hgb 12.9 gm/dl (11.8-15.2) 10/25/17 16:52 Hct 39.3 % (35.5-45.6) 10/25/17 16:52 MCV 85 fl (84-94) 10/25/17 16:52 MCH 28 pg (28-32) 10/25/17 16:52 MCHC 33 % (32-34) 10/25/17 16:52 RDW 15.1 % (13.2-15.2) 10/25/17 16:52 Plt Count 328 K/mm3 (140-440) 10/25/17 16:52 Lymph % (Auto) 6.5 % (13.4-35.0) L 10/25/17 16:52 [place] % (Auto) 10.9 % (0.0-7.3) H 10/25/17 16:52 Eos % (Auto) 0.9 % (0.0-4.3) 10/25/17 16:52 Baso % (Auto) 0.4 % (0.0-1.8) 10/25/17 16:52 Lymph # 1.0 K/mm3 (1.2-5.4) L 10/25/17 16:52 [place] # 1.6 K/mm3 (0.0-0.8) H 10/25/17 16:52 Eos # 0.1 K/mm3 (0.0-0.4) 10/25/17 16:52 Baso # 0.1 K/mm3 (0.0-0.1) 10/25/17 16:52 Seg Neutrophils % 81.3 % (40.0-70.0) H 10/25/17 16:52 Seg Neutrophils # 12.3 K/mm3 (1.8-7.7) H 10/25/17 16:52 PT 16.9 Sec. (12.2-14.9) H 10/26/17 06:14 INR 1.30 (0.87-1.13) H 10/26/17 06:14 APTT 39.4 Sec. (24.2-36.6) H 10/25/17 18:06 Sodium 137 mmol/L (137-145) 10/26/17 10:29 Potassium 5.0 mmol/L (3.6-5.0) 10/26/17 10:29 Chloride 92.9 mmol/L (98-107) L 10/26/17 10:29 Carbon Dioxide 34 mmol/L (22-30) H 10/26/17 10:29 Anion Gap 15 mmol/L 10/26/17 10:29 BUN 14 mg/dL (9-20) 10/26/17 10:29 Creatinine 0.7 mg/dL (0.8-1.5) L 10/26/17 10: Estimated GFR > 60 ml/min 10/26/17 10: BUN/Creatinine Ratio 20 % 10/26/17 10: Glucose 167 mg/dL (75-100) H 10/26/17 10:29 POC Glucose 102 (70-105) 10/25/17 20:07 Calcium 9.3 mg/dL (8.4-10.2) 10/26/17 10:29 Total Creatine Kinase 88 units/L (55-170) 10/25/17 18:06 CK-MB (CK-2) 2.7 ng/mL (0.0-4.0) 10/25/17 18: CK-MB (CK-2) Rel Index 3.0 (0-4) 10/25/17 18:06 Troponin T < 0.010 ng/mL (0.00-0.029) 10/25/17 18:06 NT-Pro-B Natriuret Pep 5652 pg/mL (0-900) H 10/25/17 18:06 Digoxin 2.7 ng/mL (0.9-2.0) H* 10/26/17 10:29
[2017-10-26] MEDS: COUMADIN PO SCH (17:49)
[2017-10-26] MEDS: PRAVACHOL PO SCH (18:22)
[2017-10-27] MEDS: LASIX IV SCH ×2 (06:09→17:48)
[2017-10-27 07:52] LABS: INR 1.51 (0.87-1.13)
--- NOTE | 2017-10-27 09:01 | Event Note ---
Date: 10/27/17 Patient sitting in chair. Denies chest pain or shortness of breath. In no acute distress. Vital signs are stable. Telemetry demonstrates normal sinus rhythm On exam the neck is supple without JVD. Carotids are 2+ the lungs reveal markedly diminished breath sounds on the right side posteriorly. Cardiac exam reveals a regular rate and rhythm. The abdomen is soft and nontender. Extremities 1+ edema of the lower extremities. The INR is subtherapeutic at 1.5. Digoxin level 2.7 CT scan of the chest demonstrates a large loculated right pleural effusion Impression and plan: Paroxysmal atrial fibrillation, heart failure with reduced left ventricular ejection fraction, status post AICD implantation, loculated right pleural effusion. Continue current medical management. Thoracentesis if recommended by pulmonary. INR target 2-3. Hold or discontinue digoxin. Recheck digoxin level in 2-3 days. Cardiac status appears stable overall.
[2017-10-27] MEDS: LEVAQUIN 750MG/150ML 750 MG/150 ML BAG IV SCH (09:42)
[2017-10-27] MEDS: BETAPACE PO SCH ×2 (09:43→22:15)
[2017-10-27] MEDS: ALLBEE WITH C PO SCH (09:43)
[2017-10-27] MEDS: VITAMIN C PO SCH (09:43)
[2017-10-27] MEDS: PEPCID PO SCH ×2 (09:44→22:15)
[2017-10-27] MEDS: COREG PO SCH ×2 (09:44→22:14)
[2017-10-27] MEDS: APRESOLINE PO SCH ×2 (10:29→22:16)
[2017-10-27] MEDS: ZESTRIL PO SCH ×2 (10:29→22:17)
[2017-10-27] MEDS: NORVASC PO SCH (10:29)
--- NOTE | 2017-10-27 11:40 | Progress Note ---
Assessment and Plan Assessment and Plan Assessment and plan: (1) CHF exacerbation - On IV Lasix, and continue appropriate CHF medications - Cardiology following (2) Acute hypoxemic respiratory failure - Likely due to the large right pleural effusion versus CHF - Pulmonary consulted and patient may need to thoracentesis (3) Pneumonia - Patient is on IV antibiotics (4) Hyperkalemia - Treated with hyperkalemia (5) Pleural effusion, right - Pulmonary consulted - CT chest done for further evaluation of this effusion (6) Atrial fibrillation - Patient is on anticoagulation (7) DVT prophylaxis - Continue anticoagulation Disposition - Continue inpatient care Subjective Date of service: 10/27/17 Principal diagnosis: CHF exacerbation/Ac resp failure Interval history: Symptomatically better Objective - Constitutional Vitals: Vital Signs - 12hr 10/27/17 10/27/17 10/27/17 00:47 09:02 09:43 Temperature 98.5 F 98.6 F Pulse Rate 81 83 73 Respiratory 20 20 Rate Blood Pressure 102/50 120/62 Blood Pressure 125/63 [Left] O2 Sat by Pulse 96 93 Oximetry General appearance: Present: no acute distress, well-nourished - EENT Eyes: PERRL, EOM intact ENT: hearing intact, clear oral mucosa Ears: bilateral: normal - Neck Neck: supple, normal ROM - Respiratory Respiratory effort: normal Respiratory: bilateral: CTA - Breasts Breasts: normal - Cardiovascular Rhythm: regular Heart Sounds: Present: S1 & S2. Absent: gallop, rub Extremities: pulses intact, No edema, normal color, Full ROM - Gastrointestinal General gastrointestinal: Present: soft, non-tender, non-distended, normal bowel sounds - Genitourinary Male genitourinary: normal - Integumentary Integumentary: clear, warm, dry - Musculoskeletal Musculoskeletal: 1, strength equal bilaterally - Neurologic Neurologic: moves all extremities - Psychiatric Psychiatric: memory intact, appropriate mood/affect, intact judgment & insight - Labs CBC & Chem 7: 10/25/17 16:52 10/26/17 10:29 Labs: Abnormal lab results 10/26/17 10/27/17 Range/Units 10:29 07:10 PT 19.0 H (12.2-14.9) Sec. INR 1.51 H (0.87-1.13) Digoxin 2.7 H* (0.9-2.0) ng/mL
--- NOTE | 2017-10-27 14:58 | Progress Note ---
Assessment and Plan 57 y/o female with CHF and right sided pleural effusion 1. Reviewed CT. With pleural thickening, this effusion has likely been present for quite sometime and patient may have an element of trapped lung associated with this. Thoracentesis and removal of fluid may not result in full re-expansion of lung. Given that the patient is improving with diuresis. Would not recommend this at this time. 2. Will cancel CXR for today. Can repeat tomorrow or Saturday. Subjective Date of service: 10/27/17 Interval history: Continues to feel better. Output is good. Had CT of chest done. Not sure why as I stated that we should hold off for now. Objective Vital Signs - 12hr 10/27/17 10/27/17 10/27/17 09:00 09:02 09:43 Temperature 98.6 F Pulse Rate 91 H 83 73 Respiratory 20 Rate Blood Pressure 120/62 Blood Pressure 125/63 [Left] O2 Sat by Pulse 93 Oximetry 10/27/17 12:40 Temperature 99.3 F Pulse Rate 79 Respiratory 18 Rate Blood Pressure Blood Pressure 120/60 [Left] O2 Sat by Pulse 95 Oximetry Constitutional: no acute distress, alert Eyes: non-icteric ENT: oropharynx moist Neck: supple Ascultation: Right: diminished breath sounds, rales (base), Left: clear CBC and BMP: 10/25/17 16:52 10/26/17 10:29 ABG, PT/INR, D-dimer: PT/INR, D-dimer PT 19.0 Sec. (12.2-14.9) H 10/27/17 07:10 INR 1.51 (0.87-1.13) H 10/27/17 07:10 Abnormal lab findings: Abnormal Labs 10/25/17 10/25/17 10/25/17 16:52 16:52 18:06 WBC 15.2 H Lymph % (Auto) 6.5 L [place] % (Auto) 10.9 H Lymph # 1.0 L [place] # 1.6 H Seg Neutrophils % 81.3 H Seg Neutrophils # 12.3 H PT 16.2 H INR 1.23 H APTT 39.4 H Sodium 132 L Potassium 6.6 H* Chloride 88.5 L Carbon Dioxide Creatinine 0.6 L Glucose 112 H NT-Pro-B Natriuret Pep Digoxin 0110/25/17 10/26/17 18:06 18:06 06:14 WBC Lymph % (Auto) [place] % (Auto) Lymph # [place] # Seg Neutrophils % Seg Neutrophils # PT 16.9 H INR 1.30 H APTT Sodium Potassium 6.4 H* Chloride Carbon Dioxide Creatinine Glucose NT-Pro-B Natriuret Pep 5652 H Digoxin 10/26/17 10/26/17 10/26/17 09:32 10:29 10:29 WBC Lymph % (Auto) [place] % (Auto) Lymph # [place] # Seg Neutrophils % Seg Neutrophils # PT INR APTT Sodium Potassium Chloride 94.0 L 92.9 L Carbon Dioxide 34 H D 34 H Creatinine 0.6 L 0.7 L Glucose 129 H 167 H NT-Pro-B Natriuret Pep Digoxin 2.7 H* 10/27/17 07:10 WBC Lymph % (Auto) [place] % (Auto) Lymph # [place] # Seg Neutrophils % Seg Neutrophils # PT 19.0 H INR 1.51 H APTT Sodium Potassium Chloride Carbon Dioxide Creatinine Glucose NT-Pro-B Natriuret Pep Digoxin
[2017-10-27] MEDS: COUMADIN PO SCH (16:30)
[2017-10-27] MEDS: PRAVACHOL PO SCH (17:48)
[2017-10-28] MEDS: LASIX IV SCH ×2 (06:07→17:30)
[2017-10-28 06:19] LABS: INR 2.06 (0.87-1.13)
[2017-10-28] MEDS: COREG PO SCH ×2 (09:11→23:06)
[2017-10-28] MEDS: NORVASC PO SCH (09:11)
[2017-10-28] MEDS: ZESTRIL PO SCH ×2 (09:11→23:07)
[2017-10-28] MEDS: APRESOLINE PO SCH ×2 (09:12→23:06)
[2017-10-28] MEDS: ALLBEE WITH C PO SCH (09:12)
[2017-10-28] MEDS: BETAPACE PO SCH ×2 (09:12→23:09)
[2017-10-28] MEDS: LEVAQUIN PO SCH (09:12)
[2017-10-28] MEDS: PEPCID PO SCH ×2 (09:12→23:09)
[2017-10-28] MEDS: VITAMIN C PO SCH (09:13)
--- NOTE | 2017-10-28 12:44 | Progress Note ---
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 Repeat CXR. Assessment and plan reviewed with pt at bedside. The patient has been seen in conjunction with Dr. Warner who agrees with the assessment and plan of care. Subjective Date of service: 10/28/17 Principal diagnosis: HF Interval history: Pt resting in bed, still c/o SOB. C/o right-sided middle back pain. In SR on tele with no acute events overnight. Objective Last Vital Signs Temp 98.5 F 10/28/17 08:54 Pulse 76 10/28/17 08:54 Resp 18 10/28/17 08:54 BP 111/62 10/28/17 09:12 Pulse Ox 92 10/28/17 08:54 - Physical Examination General: No Apparent Distress HEENT: Positive: PERRL, Normocephaly Neck: Positive: neck supple, Carotid Upstroke (2+ bilat). Negative: JVD/HJR, Bruit Cardiac: Positive: Reg Rate and Rhythm, S1/S2 Lungs: Positive: Decreased Breath Sounds Neuro: Positive: Grossly Intact Abdomen: Positive: Soft. Negative: Tender Skin: Positive: Clear Musculoskeletal: Normal Range of Motion Extremities: Present: Other (peripheral pulses intact). Absent: Clubbing, Cyanosis - Labs and Meds Coagulation 10/28/17 Range/Units 05:17 PT 24.4 H (12.2-14.9) Sec. INR 2.06 H (0.87-1.13) - Imaging and Cardiology Pharmacologic stress test: report reviewed (12/2016: severely dilated LV, suggestive of prior infarction with minimal residual in the LAD territory, also suggestion of large area of prior infarction in the RCA territory and small area of prior infarction in left circ territory) Echo: report reviewed (06/2016: EF 10-15%, LA mod dilated, RA mildly dilated, trace TR, LV severely dilated, impaired relaxation, RV mildly dilated with normal systolic function) - Telemetry EKG Rhythm: Sinus Rhythm Chamber hypertrophy or enlargement: left ventricular hypertro Repolarization changes or abnormalities: repolarization abn secondary to ventricular hypertrophy
--- NOTE | 2017-10-28 13:38 | Progress Note ---
Assessment and Plan Assessment and Plan Assessment and plan: (1) CHF exacerbation - On IV Lasix, and continue appropriate CHF medications - Cardiology following (2) Acute hypoxemic respiratory failure - Likely due to the large right pleural effusion versus CHF - Pulmonary consulted and patient may need to thoracentesis (3) Pneumonia - Patient is on IV antibiotics (4) Hyperkalemia - hyperkalemia-resolved.K= 5.0 (5) Pleural effusion, right - loculated pleural effusion.Will hold off thoracentesis for now-as per Pulmonary. (6) Atrial fibrillation - Patient is on anticoagulation (7) DVT prophylaxis - Continue anticoagulation Disposition - Continue inpatient care Subjective Date of service: 10/28/17 Principal diagnosis: CHF exacerbation/Ac resp failure Interval history: Symptomatically better Objective - Constitutional Vitals: Vital Signs - 12hr 10/28/17 10/28/17 10/28/17 04:56 08:54 09:11 Temperature 98.2 F 98.5 F Pulse Rate 82 76 Respiratory 17 18 Rate Blood Pressure 115/62 111/62 Blood Pressure 111/62 [Left] O2 Sat by Pulse 99 92 Oximetry 10/28/17 09:12 Temperature Pulse Rate Respiratory Rate Blood Pressure 111/62 Blood Pressure [Left] O2 Sat by Pulse Oximetry General appearance: Present: no acute distress, well-nourished - EENT Eyes: PERRL, EOM intact ENT: hearing intact, clear oral mucosa Ears: bilateral: normal - Neck Neck: supple, normal ROM - Respiratory Respiratory effort: normal Respiratory: bilateral: CTA - Breasts Breasts: normal - Cardiovascular Rhythm: regular Heart Sounds: Present: S1 & S2. Absent: gallop, rub Extremities: pulses intact, No edema, normal color, Full ROM - Gastrointestinal General gastrointestinal: Present: soft, non-tender, non-distended, normal bowel sounds - Genitourinary Male genitourinary: normal - Integumentary Integumentary: clear, warm, dry - Musculoskeletal Musculoskeletal: 1, strength equal bilaterally - Neurologic Neurologic: moves all extremities - Psychiatric Psychiatric: memory intact, appropriate mood/affect, intact judgment & insight - Labs CBC & Chem 7: 10/25/17 16:52 10/26/17 10:29 Labs: Abnormal lab results 10/28/17 Range/Units 05:17 PT 24.4 H (12.2-14.9) Sec. INR 2.06 H (0.87-1.13)
[2017-10-28] MEDS: PRAVACHOL PO SCH (17:30)
[2017-10-28] MEDS: COUMADIN PO SCH (17:30)
--- NOTE | 2017-10-28 18:46 | XRay Report ---
FINAL REPORT PROCEDURE: XR CHEST 1V AP TECHNIQUE: Chest radiograph anteroposterior view. CPT 98463 HISTORY: pleural effusion COMPARISON: Prior chest x-ray 10/25/2017 FINDINGS: Dual-chamber pacemaker/defibrillator device remains in place implanted in the left side of the chest without interval change. Cardiomegaly is stable. Pleural and parenchymal densities again seen in the right arline thorax. Right-sided pleural effusion again visualized on the right. Pleural-based densities on the right are lobulated which may be loculated pleural fluid or perhaps fluid extending into the major fissure. I cannot exclude a mass in the right arline thorax. Continued surveillance recommended to ensure these abnormalities resolve and there are no underlying masses. No acute bony abnormalities are identified. IMPRESSION: Cardiomegaly is unchanged. Pacemaker also unchanged. Stable pleural and parenchymal densities on the right as described. Continued surveillance recommended to ensure this resolves and there are no underlying masses on the right.
[2017-10-28 22:05] LABS: Creatine Kinase MB 1.4 ng/mL (0.0-4.0)
[2017-10-28 22:30] LABS: Chol/HDL Ratio 5.09 %
[2017-10-29 05:47] LABS: Hematocrit 38.1 % (35.5-45.6); Hemoglobin 12.3 gm/dl (11.8-15.2); Mean Corpuscular HGB Conc 32 % (32-34); Mean Corpuscular Hemoglobin 27 pg (28-32); Mean Corpuscular Volume 83 fl (84-94); Platelet Count 392 K/mm3 (140-440); Red Blood Count 4.58 M/mm3 (3.65-5.03); Red Cell Distribution Width 14.5 % (13.2-15.2)
[2017-10-29 05:56] LABS: INR 2.1 (0.87-1.13)
[2017-10-29] MEDS: LASIX IV SCH (05:58)
[2017-10-29 06:12] LABS: BUN/Creatinine Ratio 27; Blood Urea Nitrogen 16 mg/dL (9-20); Hemolysis Index 20
[2017-10-29 06:33] LABS: Calcium 8.8 mg/dL (8.4-10.2)
--- NOTE | 2017-10-29 10:46 | Progress Note ---
Assessment and Plan Shortness of breath. Secondary to restrictive lung disease, pleural effusion, elevated hemidiaphragm, in the context of congestive failure Right lung with pleural effusion. Review of the patient's films show combination of factors; -Loculated pleural effusion on the right side per CT - Chronically elevated right hemidiaphragm since 2008. This according to the patient's films reviewed. Congestive heart failure with low ejection fraction, see cardiology comments Recommendations I think it is reasonable to continue gentle diuretics and see how the patient's chest x-ray improved If no improvement with this, its reasonable to do at least to one diagnostic thoracentesis, sonographically guided. Best timing for this to be decided based on clinical improvement or lack of, since patient is also on Coumadin As noted by Dr. Best, if loculations and entrapment is present, do not anticipate further improvement. This patient with the patient also has a right hemidiaphragm elevation. Additional treatment probably includes thoracic surgery consultation for eventual decortication of the lung however, this may not be possible in the context of severe cardiomyopathy with ejection fraction of 10-15% Subjective Date of service: 10/29/17 Principal diagnosis: HF, pleural effusion Objective Vital Signs - 12hr 10/28/17 10/28/17 10/28/17 22:58 23:06 23:07 Temperature 98.4 F Pulse Rate 75 Respiratory 20 Rate Blood Pressure 108/54 96/59 96/59 O2 Sat by Pulse 93 Oximetry 10/28/17 10/29/17 10/29/17 23:09 03:51 08:19 Temperature 98.5 F 97.9 F Pulse Rate 80 80 Respiratory 18 16 Rate Blood Pressure 96/59 122/73 110/52 O2 Sat by Pulse 90 98 Oximetry Constitutional: no acute distress, alert Eyes: non-icteric ENT: oropharynx moist Neck: supple Ascultation: Right: diminished breath sounds, rales (base), Left: clear Cardiovascular: regular rate and rhythm Extremities: no cyanosis, no cyanosis, no cyanosis Neurologic: normal mental status, non-focal exam CBC and BMP: 10/31/17 05:40 10/31/17 05:40 ABG, PT/INR, D-dimer: PT/INR, D-dimer PT 24.8 Sec. (12.2-14.9) H 10/29/17 Unknown INR 2.10 (0.87-1.13) H 10/29/17 Unknown Abnormal lab findings: Abnormal Labs 10/25/17 10/25/17 10/25/17 16:52 16:52 18:06 WBC 15.2 H MCV MCH Lymph % (Auto) 6.5 L [place] % (Auto) 10.9 H Lymph # 1.0 L [place] # 1.6 H Seg Neutrophils % 81.3 H Seg Neutrophils # 12.3 H PT 16.2 H INR 1.23 H APTT 39.4 H Sodium 132 L Potassium 6.6 H* Chloride 88.5 L Carbon Dioxide Creatinine 0.6 L Glucose 112 H Total Creatine Kinase CK-MB (CK-2) Rel Index Troponin T NT-Pro-B Natriuret Pep HDL Cholesterol Digoxin 10/25/17 10/25/17 10/26/17 18:06 18:06 06:14 WBC MCV MCH Lymph % (Auto) [place] % (Auto) Lymph # [place] # Seg Neutrophils % Seg Neutrophils # PT 16.9 H INR 1.30 H APTT Sodium Potassium 6.4 H* Chloride Carbon Dioxide Creatinine Glucose Total Creatine Kinase CK-MB (CK-2) Rel Index Troponin T NT-Pro-B Natriuret Pep 5652 H HDL Cholesterol Digoxin 10/26/17 10/26/17 10/26/17 09:32 10:29 10:29 WBC MCV MCH Lymph % (Auto) [place] % (Auto) Lymph # [place] # Seg Neutrophils % Seg Neutrophils # PT INR APTT Sodium Potassium Chloride 94.0 L 92.9 L Carbon Dioxide 34 H D 34 H Creatinine 0.6 L 0.7 L Glucose 129 H 167 H Total Creatine Kinase CK-MB (CK-2) Rel Index Troponin T NT-Pro-B Natriuret Pep HDL Cholesterol Digoxin 2.7 H* 10/27/17 10/28/17 10/28/17 07:10 05:17 21:18 WBC MCV MCH Lymph % (Auto) [place] % (Auto) Lymph # [place] # Seg Neutrophils % Seg Neutrophils # PT 19.0 H 24.4 H INR 1.51 H 2.06 H APTT Sodium Potassium Chloride Carbon Dioxide Creatinine Glucose Total Creatine Kinase 33 L CK-MB (CK-2) Rel Index 4.2 H Troponin T 0.062 H D NT-Pro-B Natriuret Pep HDL Cholesterol 21 L Digoxin 10/29/17 10/29/17 10/29/17 Unknown Unknown Unknown WBC 12.5 H MCV 83 L MCH 27 L Lymph % (Auto) [place] % (Auto) Lymph # [place] # Seg Neutrophils % Seg Neutrophils # PT 24.8 H INR 2.10 H APTT Sodium Potassium Chloride 93.0 L Carbon Dioxide 34 H Creatinine 0.6 L Glucose Total Creatine Kinase CK-MB (CK-2) Rel Index Troponin T NT-Pro-B Natriuret Pep HDL Cholesterol Digoxin
[2017-10-29] MEDS: APRESOLINE PO SCH ×2 (10:50→22:52)
[2017-10-29] MEDS: NORVASC PO SCH (10:51)
[2017-10-29] MEDS: BETAPACE PO SCH ×2 (11:00→22:52)
[2017-10-29] MEDS: PEPCID PO SCH ×2 (11:00→22:51)
[2017-10-29] MEDS: VITAMIN C PO SCH (11:01)
[2017-10-29] MEDS: COREG PO SCH ×2 (11:02→22:53)
[2017-10-29] MEDS: LEVAQUIN PO SCH (11:02)
[2017-10-29] MEDS: ZESTRIL PO SCH ×2 (11:03→22:51)
--- NOTE | 2017-10-29 11:31 | Progress Note ---
Assessment and Plan Assessment: Acute on chronic combined systolic and diastolic heart failure Loculated right pleural effusion Dilated NICMP - EF 10-15% AICD in situ Hyperkalemia - improved Supratherapeutic digoxin level - dig level 2.7 on admission; digoxin held HTN HLP Paroxysmal atrial fibrillation NSVT Plan: Cont present cardiac regimen. Pt reports improvement in SOB today. Per pulmonary, to continue gentle diuretics at this time and consider diagnostic thoracentesis if no improvement. Also per pulmonary, additional treatment probably includes thoracic surgery consultation for eventual decortication of the lung however, this may not be possible in the context of severe cardiomyopathy with ejection fraction of 10-15%. Assessment and plan reviewed with pt at bedside. The patient has been seen in conjunction with Dr. Warner who agrees with the assessment and plan of care. Subjective Date of service: 10/29/17 Principal diagnosis: HF, pleural effusion Interval history: Pt resting in bed, states his SOB is improved today and he has been ambulating around the unit without difficulty. In SR on tele with frequent runs of NSVT overnight. Objective Last Vital Signs Temp 97.9 F 10/29/17 08:19 Pulse 80 10/29/17 11:03 Resp 16 10/29/17 08:19 BP 110/52 10/29/17 11:03 Pulse Ox 98 10/29/17 08:19 - Physical Examination General: No Apparent Distress HEENT: Positive: PERRL, Normocephaly Neck: Positive: neck supple, Carotid Upstroke (2+ bilat). Negative: JVD/HJR, Bruit Cardiac: Positive: Reg Rate and Rhythm, S1/S2 Lungs: Positive: Decreased Breath Sounds (right side) Neuro: Positive: Grossly Intact Abdomen: Positive: Soft. Negative: Tender Skin: Positive: Clear Musculoskeletal: Normal Range of Motion Extremities: Present: Other (peripheral pulses intact). Absent: Clubbing, Cyanosis - Labs and Meds Cardiac Enzymes 10/28/17 Range/Units 21:18 CK-MB (CK-2) 1.4 (0.0-4.0) ng/mL Coagulation 10/29/17 Range/Units Unknown PT 24.8 H (12.2-14.9) Sec. INR 2.10 H (0.87-1.13) Lipids 10/28/17 Range/Units 21:18 Triglycerides 59 (2-149) mg/dL Cholesterol 107 (50-199) mg/dL HDL Cholesterol 21 L (40-59) mg/dL Cholesterol/HDL Ratio 5.09 % CBC 10/29/17 Range/Units Unknown WBC 12.5 H (4.5-11.0) K/mm3 RBC 4.58 (3.65-5.03) M/mm3 Hgb 12.3 (11.8-15.2) gm/dl Hct 38.1 (35.5-45.6) % Plt Count 392 (140-440) K/mm3 Comprehensive Metabolic Panel 10/29/17 Range/Units Unknown Sodium 137 (137-145) mmol/L Potassium 4.6 (3.6-5.0) mmol/L Chloride 93.0 L (98-107) mmol/L Carbon Dioxide 34 H (22-30) mmol/L BUN 16 (9-20) mg/dL Creatinine 0.6 L (0.8-1.5) mg/dL Glucose 85 (75-100) mg/dL Calcium 8.8 (8.4-10.2) mg/dL - Imaging and Cardiology Echo: report reviewed (06/2016: EF 10-15%, LA mod dilated, RA mildly dilated, trace TR, LV severely dilated, impaired relaxation, RV mildly dilated with normal systolic function) - Telemetry EKG Rhythm: Sinus Rhythm Chamber hypertrophy or enlargement: left ventricular hypertro Repolarization changes or abnormalities: repolarization abn secondary to ventricular hypertrophy
--- NOTE | 2017-10-29 15:01 | Progress Note ---
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 Loculated right pleural effusion consider diagnostic thoracentesis if no improvement. Also per pulmonary, additional treatment probably includes thoracic surgery consultation for eventual decortication of the lung however, this may not be possible in the context of severe cardiomyopathy with ejection fraction of 10-15%. Hyperkalemia - improved Supratherapeutic digoxin level - dig level 2.7 on admission; digoxin held Hypertension. Continue antihypertensive medications. Hyperlipidemia. Continue current management. Paroxysmal atrial fibrillation NSVT Disposition. Case management reports patient is out of network. Attempting to transfer to Hospital within. History Interval history: no new issues Hospitalist Physical - Constitutional Vitals: Temp Pulse Resp BP Pulse Ox 97.9 F 80 16 110/52 98 10/29/17 08:19 10/29/17 11:03 10/29/17 08:19 10/29/17 11:03 10/29/17 08:19 General appearance: Present: no acute distress, well-nourished - EENT Eyes: Present: PERRL, EOM intact ENT: hearing intact, clear oral mucosa, dentition normal - Neck Neck: Present: supple, normal ROM - Respiratory Respiratory effort: normal Respiratory: bilateral: CTA - Cardiovascular Rhythm: regular Heart Sounds: Present: S1 & S2. Absent: gallop, rub - Extremities Extremities: no ischemia, No edema, Full ROM - Abdominal General gastrointestinal: soft, non-tender, non-distended, normal bowel sounds - Integumentary Integumentary: Present: clear, warm, dry - Neurologic Neurologic: CNII-XII intact, moves all extremities Results - Labs CBC & Chem 7: 10/29/17 Unknown 10/29/17 Unknown Labs: Laboratory Last Values WBC 12.5 K/mm3 (4.5-11.0) H 10/29/17 Unknown RBC 4.58 M/mm3 (3.65-5.03) 10/29/17 Unknown Hgb 12.3 gm/dl (11.8-15.2) 10/29/17 Unknown Hct 38.1 % (35.5-45.6) 10/29/17 Unknown MCV 83 fl (84-94) L 10/29/17 Unknown MCH 27 pg (28-32) L 10/29/17 Unknown MCHC 32 % (32-34) 10/29/17 Unknown RDW 14.5 % (13.2-15.2) 10/29/17 Unknown Plt Count 392 K/mm3 (140-440) 10/29/17 Unknown Lymph % (Auto) 6.5 % (13.4-35.0) L 10/25/17 16:52 Day % (Auto) 10.9 % (0.0-7.3) H 10/25/17 16:52 Eos % (Auto) 0.9 % (0.0-4.3) 10/25/17 16:52 Baso % (Auto) 0.4 % (0.0-1.8) 10/25/17 16:52 Lymph # 1.0 K/mm3 (1.2-5.4) L 10/25/17 16:52 Day # 1.6 K/mm3 (0.0-0.8) H 10/25/17 16:52 Eos # 0.1 K/mm3 (0.0-0.4) 10/25/17 16:52 Baso # 0.1 K/mm3 (0.0-0.1) 10/25/17 16:52 Seg Neutrophils % 81.3 % (40.0-70.0) H 10/25/17 16:52 Seg Neutrophils # 12.3 K/mm3 (1.8-7.7) H 10/25/17 16:52 PT 24.8 Sec. (12.2-14.9) H 10/29/17 Unknown INR 2.10 (0.87-1.13) H 10/29/17 Unknown APTT 39.4 Sec. (24.2-36.6) H 10/25/17 18:06 Sodium 137 mmol/L (137-145) 10/29/17 Unknown Potassium 4.6 mmol/L (3.6-5.0) 10/29/17 Unknown Chloride 93.0 mmol/L (98-107) L 10/29/17 Unknown Carbon Dioxide 34 mmol/L (22-30) H 10/29/17 Unknown Anion Gap 15 mmol/L 10/29/17 Unknown BUN 16 mg/dL (9-20) 10/29/17 Unknown Creatinine 0.6 mg/dL (0.8-1.5) L 10/29/17 Unknown Estimated GFR > 60 ml/min 10/29/17 Unknown BUN/Creatinine Ratio 27 % 10/29/17 Unknown Glucose 85 mg/dL (75-100) 10/29/17 Unknown POC Glucose 102 (70-105) 10/25/17 20:07 Calcium 8.8 mg/dL (8.4-10.2) 10/29/17 Unknown Total Creatine Kinase 33 units/L (55-170) L 10/28/17 21:18 CK-MB (CK-2) 1.4 ng/mL (0.0-4.0) 10/28/17 21:18 CK-MB (CK-2) Rel Index 4.2 (0-4) H 10/28/17 21:18 Troponin T 0.062 ng/mL (0.00-0.029) H D 10/28/17 21:18 NT-Pro-B Natriuret Pep 5652 pg/mL (0-900) H 10/25/17 18:06 Triglycerides 59 mg/dL (2-149) 10/28/17 21:18 Cholesterol 107 mg/dL (50-199) 10/28/17 21:18 LDL Cholesterol Direct 75 mg/dL (50-130) 10/28/17 21:18 HDL Cholesterol 21 mg/dL (40-59) L 10/28/17 21:18 Cholesterol/HDL Ratio 5.09 % 10/28/17 21:18 Digoxin 2.7 ng/mL (0.9-2.0) H* 10/26/17 10:29
[2017-10-30] MEDS: LASIX IV SCH ×2 (05:52→17:32)
[2017-10-30 06:45] LABS: INR 1.92 (0.87-1.13)
[2017-10-30] MEDS: BETAPACE PO SCH ×2 (09:20→22:09)
[2017-10-30] MEDS: VITAMIN C PO SCH (09:21)
[2017-10-30] MEDS: PEPCID PO SCH ×2 (09:21→22:09)
[2017-10-30] MEDS: LEVAQUIN PO SCH (09:22)
[2017-10-30] MEDS: COREG PO SCH ×2 (09:22→22:07)
[2017-10-30] MEDS: ALLBEE WITH C PO SCH (09:23)
[2017-10-30] MEDS: APRESOLINE PO SCH ×2 (09:23→22:11)
[2017-10-30] MEDS: NORVASC PO SCH (09:24)
[2017-10-30] MEDS: ZESTRIL PO SCH ×2 (09:24→22:11)
--- NOTE | 2017-10-30 10:05 | Progress Note ---
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 Loculated right pleural effusion consider diagnostic thoracentesis if no improvement. Also per pulmonary, additional treatment probably includes thoracic surgery consultation for eventual decortication of the lung however, this may not be possible in the context of severe cardiomyopathy with ejection fraction of 10-15%. Recheck chest x-ray today Hyperkalemia - improved Supratherapeutic digoxin level - dig level 2.7 on admission; digoxin held Hypertension. Continue antihypertensive medications. Hyperlipidemia. Continue current management. Paroxysmal atrial fibrillation NSVT Disposition. Case management reports patient is out of network. Attempting to transfer to Hospital within. History Interval history: no new issues Hospitalist Physical - Constitutional Vitals: Temp Pulse Resp BP Pulse Ox 98.9 F 89 20 103/58 95 10/30/17 04:24 10/30/17 04:24 10/30/17 04:24 10/30/17 09:20 10/30/17 04:24 General appearance: Present: no acute distress, well-nourished - EENT Eyes: Present: PERRL, EOM intact ENT: hearing intact, clear oral mucosa, dentition normal - Neck Neck: Present: supple, normal ROM - Respiratory Respiratory effort: normal Respiratory: bilateral: CTA - Cardiovascular Rhythm: regular Heart Sounds: Present: S1 & S2. Absent: gallop, rub - Extremities Extremities: no ischemia, No edema, Full ROM - Abdominal General gastrointestinal: soft, non-tender, non-distended, normal bowel sounds - Integumentary Integumentary: Present: clear, warm, dry - Neurologic Neurologic: CNII-XII intact, moves all extremities Results - Labs CBC & Chem 7: 10/29/17 Unknown 10/29/17 Unknown Labs: Laboratory Last Values WBC 12.5 K/mm3 (4.5-11.0) H 10/29/17 Unknown RBC 4.58 M/mm3 (3.65-5.03) 10/29/17 Unknown Hgb 12.3 gm/dl (11.8-15.2) 10/29/17 Unknown Hct 38.1 % (35.5-45.6) 10/29/17 Unknown MCV 83 fl (84-94) L 10/29/17 Unknown MCH 27 pg (28-32) L 10/29/17 Unknown MCHC 32 % (32-34) 10/29/17 Unknown RDW 14.5 % (13.2-15.2) 10/29/17 Unknown Plt Count 392 K/mm3 (140-440) 10/29/17 Unknown Lymph % (Auto) 6.5 % (13.4-35.0) L 10/25/17 16:52 [place] % (Auto) 10.9 % (0.0-7.3) H 10/25/17 16:52 Eos % (Auto) 0.9 % (0.0-4.3) 10/25/17 16:52 Baso % (Auto) 0.4 % (0.0-1.8) 10/25/17 16:52 Lymph # 1.0 K/mm3 (1.2-5.4) L 10/25/17 16:52 [place] # 1.6 K/mm3 (0.0-0.8) H 10/25/17 16:52 Eos # 0.1 K/mm3 (0.0-0.4) 10/25/17 16:52 Baso # 0.1 K/mm3 (0.0-0.1) 10/25/17 16:52 Seg Neutrophils % 81.3 % (40.0-70.0) H 10/25/17 16:52 Seg Neutrophils # 12.3 K/mm3 (1.8-7.7) H 10/25/17 16:52 PT 23.1 Sec. (12.2-14.9) H 10/30/17 05:10 INR 1.92 (0.87-1.13) H 10/30/17 05:10 APTT 39.4 Sec. (24.2-36.6) H 10/25/17 18:06 Sodium 137 mmol/L (137-145) 10/29/17 Unknown Potassium 4.6 mmol/L (3.6-5.0) 10/29/17 Unknown Chloride 93.0 mmol/L (98-107) L 10/29/17 Unknown Carbon Dioxide 34 mmol/L (22-30) H 10/29/17 Unknown Anion Gap 15 mmol/L 10/29/17 Unknown BUN 16 mg/dL (9-20) 10/29/17 Unknown Creatinine 0.6 mg/dL (0.8-1.5) L 10/29/17 Unknown Estimated GFR > 60 ml/min 10/29/17 Unknown BUN/Creatinine Ratio 27 % 10/29/17 Unknown Glucose 85 mg/dL (75-100) 10/29/17 Unknown POC Glucose 102 (70-105) 10/25/17 20:07 Calcium 8.8 mg/dL (8.4-10.2) 10/29/17 Unknown Magnesium 2.10 mg/dL (1.7-2.3) 10/30/17 05:10 Total Creatine Kinase 33 units/L (55-170) L 10/28/17 21:18 CK-MB (CK-2) 1.4 ng/mL (0.0-4.0) 10/28/17 21:18 CK-MB (CK-2) Rel Index 4.2 (0-4) H 10/28/17 21:18 Troponin T 0.062 ng/mL (0.00-0.029) H D 10/28/17 21:18 NT-Pro-B Natriuret Pep 5652 pg/mL (0-900) H 10/25/17 18:06 Triglycerides 59 mg/dL (2-149) 10/28/17 21:18 Cholesterol 107 mg/dL (50-199) 10/28/17 21:18 LDL Cholesterol Direct 75 mg/dL (50-130) 10/28/17 21:18 HDL Cholesterol 21 mg/dL (40-59) L 10/28/17 21:18 Cholesterol/HDL Ratio 5.09 % 10/28/17 21:18 Digoxin 2.7 ng/mL (0.9-2.0) H* 10/26/17 10:29
--- NOTE | 2017-10-30 11:53 | XRay Report ---
ROUTINE CHEST, TWO VIEWS: HISTORY: Followup pleural effusion. The large right pleural effusion which compresses the right middle and lower lobes is essentially unchanged since 10/28/17. The left lung remains clear. Moderate cardiomegaly and mild pulmonary venous congestion are stable. Pacemaker device remains in the same position. IMPRESSION: No significant change.
--- NOTE | 2017-10-30 11:54 | Progress Note ---
Assessment and Plan Assessment: Acute on chronic combined systolic and diastolic heart failure Loculated right pleural effusion Dilated NICMP - EF 10-15% AICD in situ Hyperkalemia - improved Supratherapeutic digoxin level - dig level 2.7 on admission; digoxin held HTN HLP Paroxysmal atrial fibrillation NSVT Plan: Cont present cardiac regimen. For thoracentesis this week per pt. Coumadin will need to be held pre-procedure until INR is acceptable per pulmonary. Assessment and plan reviewed with pt at bedside. The patient has been seen in conjunction with Dr. Warner who agrees with the assessment and plan of care. Subjective Date of service: 10/30/17 Principal diagnosis: HF, pleural effusion Interval history: Pt resting in bed, states he is going to undergo thoracentesis in the next few days. Objective Last Vital Signs Temp 98.9 F 10/30/17 04:24 Pulse 62 10/30/17 11:24 Resp 20 10/30/17 04:24 BP 103/58 10/30/17 09:20 Pulse Ox 95 10/30/17 04:24 - Physical Examination General: No Apparent Distress HEENT: Positive: PERRL, Normocephaly Neck: Positive: neck supple, Carotid Upstroke (2+ bilat). Negative: JVD/HJR, Bruit Cardiac: Positive: Reg Rate and Rhythm, S1/S2 Lungs: Positive: Decreased Breath Sounds Neuro: Positive: Grossly Intact Abdomen: Positive: Soft. Negative: Tender Skin: Positive: Clear Musculoskeletal: Normal Range of Motion Extremities: Present: Other (peripheral pulses intact). Absent: Clubbing, Cyanosis - Labs and Meds Coagulation 10/30/17 Range/Units 05:10 PT 23.1 H (12.2-14.9) Sec. INR 1.92 H (0.87-1.13) - Imaging and Cardiology Echo: report reviewed (06/2016: EF 10-15%, LA mod dilated, RA mildly dilated, trace TR, LV severely dilated, impaired relaxation, RV mildly dilated with normal systolic function) Chamber hypertrophy or enlargement: left ventricular hypertro Repolarization changes or abnormalities: repolarization abn secondary to ventricular hypertrophy
--- NOTE | 2017-10-30 13:52 | Progress Note ---
Assessment and Plan Shortness of breath. Secondary to restrictive lung disease, pleural effusion, elevated hemidiaphragm, in the context of congestive failure Right lung with pleural effusion. Review of the patient's films show combination of factors; -Loculated pleural effusion on the right side per CT -Chronically elevated right hemidiaphragm since 2008. This according to the patient's films reviewed. Congestive heart failure with low ejection fraction, see cardiology comments Recommendations No CXR changes. Advise diagnostic thoracentesis, sonographically guided. Will marvel to decrease Coumadin As noted by Dr. Best, if loculations and entrapment is present, do not anticipate further improvement. This patient with the patient also has a right hemidiaphragm elevation. Fluid analysis may be helpfu to exclude other problems. Subjective Date of service: 10/30/17 Principal diagnosis: HF, pleural effusion Objective Vital Signs - 12hr 10/30/17 10/30/17 10/30/17 04:24 09:20 11:24 Temperature 98.9 F Pulse Rate 89 Pulse Rate [ 62 Radial] Respiratory 20 Rate Blood Pressure 103/58 103/58 O2 Sat by Pulse 95 Oximetry Constitutional: no acute distress, alert Eyes: non-icteric ENT: oropharynx moist Neck: supple Ascultation: Right: diminished breath sounds, Left: clear Cardiovascular: regular rate and rhythm Gastrointestinal: normoactive bowel sounds, non-distended Extremities: no cyanosis, no cyanosis, no cyanosis Neurologic: normal mental status, non-focal exam CBC and BMP: 10/31/17 05:40 10/31/17 05:40 ABG, PT/INR, D-dimer: PT/INR, D-dimer PT 23.1 Sec. (12.2-14.9) H 10/30/17 05:10 INR 1.92 (0.87-1.13) H 10/30/17 05:10 Abnormal lab findings: Abnormal Labs 10/25/17 10/25/17 10/25/17 16:52 16:52 18:06 WBC 15.2 H MCV MCH Lymph % (Auto) 6.5 L [place] % (Auto) 10.9 H Lymph # 1.0 L [place] # 1.6 H Seg Neutrophils % 81.3 H Seg Neutrophils # 12.3 H PT 16.2 H INR 1.23 H APTT 39.4 H Sodium 132 L Potassium 6.6 H* Chloride 88.5 L Carbon Dioxide Creatinine 0.6 L Glucose 112 H Total Creatine Kinase CK-MB (CK-2) Rel Index Troponin T NT-Pro-B Natriuret Pep HDL Cholesterol Digoxin 10/25/17 10/25/17 10/26/17 18:06 18:06 06:14 WBC MCV MCH Lymph % (Auto) [place] % (Auto) Lymph # [place] # Seg Neutrophils % Seg Neutrophils # PT 16.9 H INR 1.30 H APTT Sodium Potassium 6.4 H* Chloride Carbon Dioxide Creatinine Glucose Total Creatine Kinase CK-MB (CK-2) Rel Index Troponin T NT-Pro-B Natriuret Pep 5652 H HDL Cholesterol Digoxin 10/26/17 10/26/17 10/26/17 09:32 10:29 10:29 WBC MCV MCH Lymph % (Auto) [place] % (Auto) Lymph # [place] # Seg Neutrophils % Seg Neutrophils # PT INR APTT Sodium Potassium Chloride 94.0 L 92.9 L Carbon Dioxide 34 H D 34 H Creatinine 0.6 L 0.7 L Glucose 129 H 167 H Total Creatine Kinase CK-MB (CK-2) Rel Index Troponin T NT-Pro-B Natriuret Pep HDL Cholesterol Digoxin 2.7 H* 10/27/17 10/28/17 10/28/17 07:10 05:17 21:18 WBC MCV MCH Lymph % (Auto) [place] % (Auto) Lymph # [place] # Seg Neutrophils % Seg Neutrophils # PT 19.0 H 24.4 H INR 1.51 H 2.06 H APTT Sodium Potassium Chloride Carbon Dioxide Creatinine Glucose Total Creatine Kinase 33 L CK-MB (CK-2) Rel Index 4.2 H Troponin T 0.062 H D NT-Pro-B Natriuret Pep HDL Cholesterol 21 L Digoxin 10/29/17 10/29/17 10/29/17 Unknown Unknown Unknown WBC 12.5 H MCV 83 L MCH 27 L Lymph % (Auto) [place] % (Auto) Lymph # [place] # Seg Neutrophils % Seg Neutrophils # PT 24.8 H INR 2.10 H APTT Sodium Potassium Chloride 93.0 L Carbon Dioxide 34 H Creatinine 0.6 L Glucose Total Creatine Kinase CK-MB (CK-2) Rel Index Troponin T NT-Pro-B Natriuret Pep HDL Cholesterol Digoxin 10/30/17 05:10 WBC MCV MCH Lymph % (Auto) [place] % (Auto) Lymph # [place] # Seg Neutrophils % Seg Neutrophils # PT 23.1 H INR 1.92 H APTT Sodium Potassium Chloride Carbon Dioxide Creatinine Glucose Total Creatine Kinase CK-MB (CK-2) Rel Index Troponin T NT-Pro-B Natriuret Pep HDL Cholesterol Digoxin
[2017-10-30] MEDS: COUMADIN PO SCH (17:32)
[2017-10-30] MEDS: PRAVACHOL PO SCH (17:33)
[2017-10-31] MEDS: LASIX IV SCH ×2 (06:20→17:42)
[2017-10-31 06:33] LABS: Basophils # (Auto) 0.1 K/mm3 (0.0-0.1); Basophils % (Auto) 0.6 % (0.0-1.8); Eosinophils # (Auto) 0.1 K/mm3 (0.0-0.4); Eosinophils % (Auto) 0.7 % (0.0-4.3); Hematocrit 36.3 % (35.5-45.6); Hemoglobin 11.9 gm/dl (11.8-15.2); Lymphocytes # (Auto) 1.1 K/mm3 (1.2-5.4); Lymphocytes % (Auto) 10.6 % (13.4-35.0); Mean Corpuscular HGB Conc 33 % (32-34); Mean Corpuscular Hemoglobin 28 pg (28-32); Mean Corpuscular Volume 84 fl (84-94); Monocytes % (Auto) 8.9 % (0.0-7.3); Platelet Count 357 K/mm3 (140-440); Red Blood Count 4.29 M/mm3 (3.65-5.03); Red Cell Distribution Width 14.9 % (13.2-15.2)
[2017-10-31 06:43] LABS: INR 1.93 (0.87-1.13)
[2017-10-31 06:57] LABS: BUN/Creatinine Ratio 27; Blood Urea Nitrogen 16 mg/dL (9-20); Calcium 8.8 mg/dL (8.4-10.2); Hemolysis Index 32
[2017-10-31] MEDS: ALLBEE WITH C PO SCH (10:56)
[2017-10-31] MEDS: BETAPACE PO SCH ×2 (10:57→22:09)
[2017-10-31] MEDS: APRESOLINE PO SCH ×3 (10:57→22:50)
[2017-10-31] MEDS: NORVASC PO SCH (10:58)
[2017-10-31] MEDS: PEPCID PO SCH ×2 (10:58→22:10)
[2017-10-31] MEDS: LEVAQUIN PO SCH (10:58)
[2017-10-31] MEDS: ZESTRIL PO SCH ×2 (10:59→22:11)
[2017-10-31] MEDS: VITAMIN C PO SCH (10:59)
[2017-10-31] MEDS: COREG PO SCH ×2 (11:01→22:12)
--- NOTE | 2017-10-31 12:00 | Progress Note ---
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 Loculated right pleural effusion We will proceed with diagnostic thoracentesis. Also per pulmonary, additional treatment probably includes thoracic surgery consultation for eventual decortication of the lung however, this may not be possible in the context of severe cardiomyopathy with ejection fraction of 10-15%. Repeat chest x-ray reveals large right pleural effusion with chest compresses the right middle and lower lobes. Hyperkalemia - improved Supratherapeutic digoxin level - dig level 2.7 on admission; digoxin held Hypertension. Continue antihypertensive medications. Hyperlipidemia. Continue current management. Paroxysmal atrial fibrillation. Patient currently on Coumadin, which will be held for the ultrasound-guided thoracentesis in a.m. NSVT Disposition. Case management reports patient is out of network. Attempting to transfer to Hospital within. History Interval history: no new issues Hospitalist Physical - Constitutional Vitals: Temp Pulse Resp BP Pulse Ox 98.8 F 81 20 99/53 98 10/31/17 03:59 10/31/17 08:08 10/31/17 03:59 10/31/17 10:57 10/31/17 08:08 General appearance: Present: no acute distress, well-nourished - EENT Eyes: Present: PERRL, EOM intact ENT: hearing intact, clear oral mucosa, dentition normal - Neck Neck: Present: supple, normal ROM - Respiratory Respiratory effort: normal Respiratory: bilateral: CTA - Cardiovascular Rhythm: regular Heart Sounds: Present: S1 & S2. Absent: gallop, rub - Extremities Extremities: no ischemia, No edema, Full ROM - Abdominal General gastrointestinal: soft, non-tender, non-distended, normal bowel sounds - Integumentary Integumentary: Present: clear, warm, dry - Neurologic Neurologic: CNII-XII intact, moves all extremities Results - Labs CBC & Chem 7: 10/31/17 05:40 10/31/17 05:40 Labs: Laboratory Last Values WBC 10.8 K/mm3 (4.5-11.0) 10/31/17 05:40 RBC 4.29 M/mm3 (3.65-5.03) 10/31/17 05:40 Hgb 11.9 gm/dl (11.8-15.2) 10/31/17 05:40 Hct 36.3 % (35.5-45.6) 10/31/17 05:40 MCV 84 fl (84-94) 10/31/17 05:40 MCH 28 pg (28-32) 10/31/17 05:40 MCHC 33 % (32-34) 10/31/17 05:40 RDW 14.9 % (13.2-15.2) 10/31/17 05:40 Plt Count 357 K/mm3 (140-440) 10/31/17 05:40 Lymph % (Auto) 10.6 % (13.4-35.0) L 10/31/17 05:40 [place] % (Auto) 8.9 % (0.0-7.3) H 10/31/17 05:40 Eos % (Auto) 0.7 % (0.0-4.3) 10/31/17 05:40 Baso % (Auto) 0.6 % (0.0-1.8) 10/31/17 05:40 Lymph # 1.1 K/mm3 (1.2-5.4) L 10/31/17 05:40 [place] # 1.0 K/mm3 (0.0-0.8) H 10/31/17 05:40 Eos # 0.1 K/mm3 (0.0-0.4) 10/31/17 05:40 Baso # 0.1 K/mm3 (0.0-0.1) 10/31/17 05:40 Seg Neutrophils % 79.2 % (40.0-70.0) H 10/31/17 05:40 Seg Neutrophils # 8.5 K/mm3 (1.8-7.7) H 10/31/17 05:40 PT 23.2 Sec. (12.2-14.9) H 10/31/17 05:40 INR 1.93 (0.87-1.13) H 10/31/17 05:40 APTT 39.4 Sec. (24.2-36.6) H 10/25/17 18:06 Sodium 138 mmol/L (137-145) 10/31/17 05:40 Potassium 4.4 mmol/L (3.6-5.0) 10/31/17 05:40 Chloride 92.9 mmol/L (98-107) L 10/31/17 05:40 Carbon Dioxide 33 mmol/L (22-30) H 10/31/17 05:40 Anion Gap 17 mmol/L 10/31/17 05:40 BUN 16 mg/dL (9-20) 10/31/17 05:40 Creatinine 0.6 mg/dL (0.8-1.5) L 10/31/17 05:40 Estimated GFR > 60 ml/min 10/31/17 05:40 BUN/Creatinine Ratio 27 % 10/31/17 05:40 Glucose 121 mg/dL (75-100) H 10/31/17 05:40 POC Glucose 102 (70-105) 10/25/17 20:07 Calcium 8.8 mg/dL (8.4-10.2) 10/31/17 05:40 Magnesium 2.10 mg/dL (1.7-2.3) 10/30/17 05:10 Total Creatine Kinase 33 units/L (55-170) L 10/28/17 21:18 CK-MB (CK-2) 1.4 ng/mL (0.0-4.0) 10/28/17 21:18 CK-MB (CK-2) Rel Index 4.2 (0-4) H 10/28/17 21:18 Troponin T 0.062 ng/mL (0.00-0.029) H D 10/28/17 21:18 NT-Pro-B Natriuret Pep 5652 pg/mL (0-900) H 10/25/17 18:06 Triglycerides 59 mg/dL (2-149) 10/28/17 21:18 Cholesterol 107 mg/dL (50-199) 10/28/17 21:18 LDL Cholesterol Direct 75 mg/dL (50-130) 10/28/17 21:18 HDL Cholesterol 21 mg/dL (40-59) L 10/28/17 21:18 Cholesterol/HDL Ratio 5.09 % 10/28/17 21:18 Digoxin 2.7 ng/mL (0.9-2.0) H* 10/26/17 10:29
--- NOTE | 2017-10-31 13:58 | Progress Note ---
Assessment and Plan Assessment: Acute on chronic combined systolic and diastolic heart failure Loculated right pleural effusion Dilated NICMP - EF 10-15% AICD in situ Hyperkalemia - improved Supratherapeutic digoxin level - dig level 2.7 on admission; digoxin held HTN HLP Paroxysmal atrial fibrillation NSVT Plan: Cont present cardiac regimen. For thoracentesis this week per pt. Coumadin will need to be held pre-procedure. Assessment and plan reviewed with pt at bedside. The patient has been seen in conjunction with Dr. Warner who agrees with the assessment and plan of care. Subjective Date of service: 10/31/17 Principal diagnosis: HF, pleural effusion Interval history: Pt resting in bed, states he is going to undergo thoracentesis today. Objective Last Vital Signs Temp 98.4 F 10/31/17 12:57 Pulse 65 10/31/17 12:57 Resp 18 10/31/17 12:57 BP 109/61 10/31/17 12:57 Pulse Ox 97 10/31/17 12:57 - Physical Examination General: No Apparent Distress HEENT: Positive: PERRL, Normocephaly Neck: Positive: neck supple, Carotid Upstroke (2+ bilat). Negative: JVD/HJR, Bruit Cardiac: Positive: Reg Rate and Rhythm, S1/S2 Lungs: Positive: Decreased Breath Sounds Neuro: Positive: Grossly Intact Abdomen: Positive: Soft. Negative: Tender Skin: Positive: Clear Musculoskeletal: Normal Range of Motion Extremities: Present: Other (peripheral pulses intact). Absent: Clubbing, Cyanosis - Labs and Meds Coagulation 10/31/17 Range/Units 05:40 PT 23.2 H (12.2-14.9) Sec. INR 1.93 H (0.87-1.13) CBC 10/31/17 Range/Units 05:40 WBC 10.8 (4.5-11.0) K/mm3 RBC 4.29 (3.65-5.03) M/mm3 Hgb 11.9 (11.8-15.2) gm/dl Hct 36.3 (35.5-45.6) % Plt Count 357 (140-440) K/mm3 Lymph # 1.1 L (1.2-5.4) K/mm3 [place] # 1.0 H (0.0-0.8) K/mm3 Eos # 0.1 (0.0-0.4) K/mm3 Baso # 0.1 (0.0-0.1) K/mm3 Comprehensive Metabolic Panel 10/31/17 Range/Units 05:40 Sodium 138 (137-145) mmol/L Potassium 4.4 (3.6-5.0) mmol/L Chloride 92.9 L (98-107) mmol/L Carbon Dioxide 33 H (22-30) mmol/L BUN 16 (9-20) mg/dL Creatinine 0.6 L (0.8-1.5) mg/dL Glucose 121 H (75-100) mg/dL Calcium 8.8 (8.4-10.2) mg/dL - Imaging and Cardiology Echo: report reviewed (06/2016: EF 10-15%, LA mod dilated, RA mildly dilated, trace TR, LV severely dilated, impaired relaxation, RV mildly dilated with normal systolic function) Chamber hypertrophy or enlargement: left ventricular hypertro Repolarization changes or abnormalities: repolarization abn secondary to ventricular hypertrophy
--- NOTE | 2017-10-31 14:04 | Progress Note ---
Assessment and Plan Shortness of breath. Secondary to restrictive lung disease, pleural effusion, elevated hemidiaphragm, in the context of congestive failure Right lung with pleural effusion. Review of the patient's films show combination of factors; -Loculated pleural effusion on the right side per CT - Chronically elevated right hemidiaphragm since 2008. This according to the patient's films reviewed. Congestive heart failure with low ejection fraction, see cardiology comments Recommendations Diagnostic thoracentesis, sonographically guided. Scheduled for today. We'll follow-up when results are available. Otherwise cooperative to be doing fine Subjective Date of service: 10/31/17 Principal diagnosis: HF, pleural effusion Interval history: Feel the same. No New complaints Objective Vital Signs - 12hr 10/31/17 10/31/17 10/31/17 03:59 08:08 10:57 Temperature 98.8 F Pulse Rate 78 81 Respiratory 20 Rate Blood Pressure 109/54 99/53 99/53 Blood Pressure [Left] O2 Sat by Pulse 93 98 Oximetry 10/31/17 12:57 Temperature 98.4 F Pulse Rate 65 Respiratory 18 Rate Blood Pressure Blood Pressure 109/61 [Left] O2 Sat by Pulse 97 Oximetry Constitutional: no acute distress, alert Eyes: non-icteric ENT: oropharynx moist Neck: supple Ascultation: Right: diminished breath sounds, Left: clear Cardiovascular: regular rate and rhythm Gastrointestinal: normoactive bowel sounds, non-distended Extremities: no cyanosis, no cyanosis, no cyanosis Neurologic: normal mental status, non-focal exam Psychiatric: mood appropriate, affect normal CBC and BMP: 10/31/17 05:40 10/31/17 05:40 ABG, PT/INR, D-dimer: PT/INR, D-dimer PT 23.2 Sec. (12.2-14.9) H 10/31/17 05:40 INR 1.93 (0.87-1.13) H 10/31/17 05:40 Abnormal lab findings: Abnormal Labs 10/25/17 10/25/17 10/25/17 16:52 16:52 18:06 WBC 15.2 H MCV MCH Lymph % (Auto) 6.5 L [place] % (Auto) 10.9 H Lymph # 1.0 L [place] # 1.6 H Seg Neutrophils % 81.3 H Seg Neutrophils # 12.3 H PT 16.2 H INR 1.23 H APTT 39.4 H Sodium 132 L Potassium 6.6 H* Chloride 88.5 L Carbon Dioxide Creatinine 0.6 L Glucose 112 H Total Creatine Kinase CK-MB (CK-2) Rel Index Troponin T NT-Pro-B Natriuret Pep HDL Cholesterol Digoxin 10/25/17 10/25/17 10/26/17 18:06 18:06 06:14 WBC MCV MCH Lymph % (Auto) [place] % (Auto) Lymph # [place] # Seg Neutrophils % Seg Neutrophils # PT 16.9 H INR 1.30 H APTT Sodium Potassium 6.4 H* Chloride Carbon Dioxide Creatinine Glucose Total Creatine Kinase CK-MB (CK-2) Rel Index Troponin T NT-Pro-B Natriuret Pep 5652 H HDL Cholesterol Digoxin 10/26/17 10/26/17 10/26/17 09:32 10:29 10:29 WBC MCV MCH Lymph % (Auto) [place] % (Auto) Lymph # [place] # Seg Neutrophils % Seg Neutrophils # PT INR APTT Sodium Potassium Chloride 94.0 L 92.9 L Carbon Dioxide 34 H D 34 H Creatinine 0.6 L 0.7 L Glucose 129 H 167 H Total Creatine Kinase CK-MB (CK-2) Rel Index Troponin T NT-Pro-B Natriuret Pep HDL Cholesterol Digoxin 2.7 H* 10/27/17 10/28/17 10/28/17 07:10 05:17 21:18 WBC MCV MCH Lymph % (Auto) [place] % (Auto) Lymph # [place] # Seg Neutrophils % Seg Neutrophils # PT 19.0 H 24.4 H INR 1.51 H 2.06 H APTT Sodium Potassium Chloride Carbon Dioxide Creatinine Glucose Total Creatine Kinase 33 L CK-MB (CK-2) Rel Index 4.2 H Troponin T 0.062 H D NT-Pro-B Natriuret Pep HDL Cholesterol 21 L Digoxin 10/29/17 10/29/17 10/29/17 Unknown Unknown Unknown WBC 12.5 H MCV 83 L MCH 27 L Lymph % (Auto) [place] % (Auto) Lymph # [place] # Seg Neutrophils % Seg Neutrophils # PT 24.8 H INR 2.10 H APTT Sodium Potassium Chloride 93.0 L Carbon Dioxide 34 H Creatinine 0.6 L Glucose Total Creatine Kinase CK-MB (CK-2) Rel Index Troponin T NT-Pro-B Natriuret Pep HDL Cholesterol Digoxin 10/30/17 10/31/17 10/31/17 05:10 05:40 05:40 WBC MCV MCH Lymph % (Auto) 10.6 L [place] % (Auto) 8.9 H Lymph # 1.1 L [place] # 1.0 H Seg Neutrophils % 79.2 H Seg Neutrophils # 8.5 H PT 23.1 H 23.2 H INR 1.92 H 1.93 H APTT Sodium Potassium Chloride Carbon Dioxide Creatinine Glucose Total Creatine Kinase CK-MB (CK-2) Rel Index Troponin T NT-Pro-B Natriuret Pep HDL Cholesterol Digoxin 10/31/17 05:40 WBC MCV MCH Lymph % (Auto) [place] % (Auto) Lymph # [place] # Seg Neutrophils % Seg Neutrophils # PT INR APTT Sodium Potassium Chloride 92.9 L Carbon Dioxide 33 H Creatinine 0.6 L Glucose 121 H Total Creatine Kinase CK-MB (CK-2) Rel Index Troponin T NT-Pro-B Natriuret Pep HDL Cholesterol Digoxin
[2017-10-31] MEDS: PRAVACHOL PO SCH (17:41)
[2017-11-01] MEDS: LASIX IV SCH (05:42)
[2017-11-01 07:01] LABS: INR 1.76 (0.87-1.13)
--- NOTE | 2017-11-01 11:18 | Progress Note ---
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 Loculated right pleural effusion We will proceed with diagnostic thoracentesis when INR is <1.4. Also per pulmonary, additional treatment probably includes thoracic surgery consultation for eventual decortication of the lung however, this may not be possible in the context of severe cardiomyopathy with ejection fraction of 10-15%. Repeat chest x-ray reveals large right pleural effusion with chest compresses the right middle and lower lobes. Hyperkalemia - improved Supratherapeutic digoxin level - dig level 2.7 on admission; digoxin held Hypertension. Continue antihypertensive medications. Hyperlipidemia. Continue current management. Paroxysmal atrial fibrillation. Patient currently on Coumadin, which will be held for the ultrasound-guided thoracentesis in a.m. NSVT Disposition. Case management reports patient is out of network. Attempted to transfer to Hospital within. History Interval history: no new issues Hospitalist Physical - Constitutional Vitals: Temp Pulse Resp BP Pulse Ox 99.4 F 72 20 101/54 93 11/01/17 08:32 11/01/17 08:32 11/01/17 08:32 11/01/17 08:32 11/01/17 08:32 General appearance: Present: no acute distress, well-nourished - EENT Eyes: Present: PERRL, EOM intact ENT: hearing intact, clear oral mucosa, dentition normal - Neck Neck: Present: supple, normal ROM - Respiratory Respiratory effort: normal Respiratory: bilateral: CTA - Cardiovascular Rhythm: regular Heart Sounds: Present: S1 & S2. Absent: gallop, rub - Extremities Extremities: no ischemia, No edema, Full ROM - Abdominal General gastrointestinal: soft, non-tender, non-distended, normal bowel sounds - Integumentary Integumentary: Present: clear, warm, dry - Neurologic Neurologic: CNII-XII intact, moves all extremities Results - Labs CBC & Chem 7: 10/31/17 05:40 10/31/17 05:40 Labs: Laboratory Last Values WBC 10.8 K/mm3 (4.5-11.0) 10/31/17 05:40 RBC 4.29 M/mm3 (3.65-5.03) 10/31/17 05:40 Hgb 11.9 gm/dl (11.8-15.2) 10/31/17 05:40 Hct 36.3 % (35.5-45.6) 10/31/17 05:40 MCV 84 fl (84-94) 10/31/17 05:40 MCH 28 pg (28-32) 10/31/17 05:40 MCHC 33 % (32-34) 10/31/17 05:40 RDW 14.9 % (13.2-15.2) 10/31/17 05:40 Plt Count 357 K/mm3 (140-440) 10/31/17 05:40 Lymph % (Auto) 10.6 % (13.4-35.0) L 10/31/17 05:40 [place] % (Auto) 8.9 % (0.0-7.3) H 10/31/17 05:40 Eos % (Auto) 0.7 % (0.0-4.3) 10/31/17 05:40 Baso % (Auto) 0.6 % (0.0-1.8) 10/31/17 05:40 Lymph # 1.1 K/mm3 (1.2-5.4) L 10/31/17 05:40 [place] # 1.0 K/mm3 (0.0-0.8) H 10/31/17 05:40 Eos # 0.1 K/mm3 (0.0-0.4) 10/31/17 05:40 Baso # 0.1 K/mm3 (0.0-0.1) 10/31/17 05:40 Seg Neutrophils % 79.2 % (40.0-70.0) H 10/31/17 05:40 Seg Neutrophils # 8.5 K/mm3 (1.8-7.7) H 10/31/17 05:40 PT 21.5 Sec. (12.2-14.9) H 11/01/17 05:05 INR 1.76 (0.87-1.13) H 11/01/17 05:05 APTT 39.4 Sec. (24.2-36.6) H 10/25/17 18:06 Sodium 138 mmol/L (137-145) 10/31/17 05:40 Potassium 4.4 mmol/L (3.6-5.0) 10/31/17 05:40 Chloride 92.9 mmol/L (98-107) L 10/31/17 05:40 Carbon Dioxide 33 mmol/L (22-30) H 10/31/17 05:40 Anion Gap 17 mmol/L 10/31/17 05:40 BUN 16 mg/dL (9-20) 10/31/17 05:40 Creatinine 0.6 mg/dL (0.8-1.5) L 10/31/17 05:40 Estimated GFR > 60 ml/min 10/31/17 05:40 BUN/Creatinine Ratio 27 % 10/31/17 05:40 Glucose 121 mg/dL (75-100) H 10/31/17 05:40 POC Glucose 102 (70-105) 10/25/17 20:07 Calcium 8.8 mg/dL (8.4-10.2) 10/31/17 05:40 Magnesium 2.10 mg/dL (1.7-2.3) 10/30/17 05:10 Total Creatine Kinase 33 units/L (55-170) L 10/28/17 21:18 CK-MB (CK-2) 1.4 ng/mL (0.0-4.0) 10/28/17 21:18 CK-MB (CK-2) Rel Index 4.2 (0-4) H 10/28/17 21:18 Troponin T 0.062 ng/mL (0.00-0.029) H D 10/28/17 21:18 NT-Pro-B Natriuret Pep 5652 pg/mL (0-900) H 10/25/17 18:06 Triglycerides 59 mg/dL (2-149) 10/28/17 21:18 Cholesterol 107 mg/dL (50-199) 10/28/17 21:18 LDL Cholesterol Direct 75 mg/dL (50-130) 10/28/17 21:18 HDL Cholesterol 21 mg/dL (40-59) L 10/28/17 21:18 Cholesterol/HDL Ratio 5.09 % 10/28/17 21:18 Amylase 35 units/L (27-131) 10/31/17 05:40 Digoxin 2.7 ng/mL (0.9-2.0) H* 10/26/17 10:29
--- NOTE | 2017-11-01 11:47 | Progress Note ---
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 Cont all other present cardiac management. For thoracentesis once INR is 1.4 per primary RN. Cont to hold coumadin. Assessment and plan reviewed with pt at bedside. The patient has been seen in conjunction with Dr. Warner who agrees with the assessment and plan of care. Subjective Date of service: 11/01/17 Principal diagnosis: HF, pleural effusion Interval history: Pt resting in bed, states he was going to have thoracentesis today but it has been cancelled as INR is still "too high" per pt report. Objective Last Vital Signs Temp 99.4 F 11/01/17 08:32 Pulse 72 11/01/17 08:32 Resp 20 11/01/17 08:32 BP 101/54 11/01/17 08:32 Pulse Ox 93 11/01/17 08:32 - Physical Examination General: No Apparent Distress HEENT: Positive: PERRL, Normocephaly Neck: Positive: neck supple, Carotid Upstroke (2+ bilat). Negative: JVD/HJR, Bruit Cardiac: Positive: Reg Rate and Rhythm, S1/S2 Lungs: Positive: Decreased Breath Sounds Neuro: Positive: Grossly Intact Abdomen: Positive: Soft. Negative: Tender Skin: Positive: Clear Musculoskeletal: Normal Range of Motion Extremities: Present: Other (peripheral pulses intact). Absent: Clubbing, Cyanosis - Labs and Meds Coagulation 11/01/17 Range/Units 05:05 PT 21.5 H (12.2-14.9) Sec. INR 1.76 H (0.87-1.13) - Imaging and Cardiology Echo: report reviewed (06/2016: EF 10-15%, LA mod dilated, RA mildly dilated, trace TR, LV severely dilated, impaired relaxation, RV mildly dilated with normal systolic function) Chamber hypertrophy or enlargement: left ventricular hypertro Repolarization changes or abnormalities: repolarization abn secondary to ventricular hypertrophy
[2017-11-01] MEDS: ALLBEE WITH C PO SCH (11:58)
[2017-11-01] MEDS: VITAMIN C PO SCH (11:59)
[2017-11-01] MEDS: LEVAQUIN PO SCH (11:59)
[2017-11-01] MEDS: BETAPACE PO SCH (12:00)
[2017-11-01] MEDS: PEPCID PO SCH ×2 (12:00→21:30)
--- NOTE | 2017-11-01 13:55 | Progress Note ---
Assessment and Plan Shortness of breath. Secondary to restrictive lung disease, pleural effusion, elevated hemidiaphragm, in the context of congestive failure. Stable, no change Right lung with pleural effusion. Review of the patient's films show combination of factors, no prior tap data; -Loculated pleural effusion on the right side per CT - Chronically elevated right hemidiaphragm since 2008. This according to the patient's films reviewed. Congestive heart failure with low ejection fraction, see cardiology comments Recommendations Pending diagnostic thoracentesis, sonographically guided. Pending INR correction Will review when results are available. Otherwise cooperative to be doing fine Subjective Date of service: 11/01/17 Principal diagnosis: HF, pleural effusion Interval history: No events, new complains Objective Vital Signs - 12hr 11/01/17 11/01/17 11/01/17 04:38 08:32 10:00 Temperature 98.4 F 99.4 F Pulse Rate 85 72 Pulse Rate [ 76 Radial] Respiratory 18 20 20 Rate Blood Pressure 111/57 Blood Pressure 101/54 [Left] O2 Sat by Pulse 93 93 94 Oximetry 11/01/17 11/01/17 12:00 12:34 Temperature 97.9 F Pulse Rate 72 Pulse Rate [ Radial] Respiratory 20 Rate Blood Pressure 101/57 Blood Pressure 112/56 [Left] O2 Sat by Pulse 94 Oximetry Constitutional: no acute distress, alert Eyes: non-icteric ENT: oropharynx moist Neck: supple Ascultation: Right: diminished breath sounds, rales (base), Left: clear Cardiovascular: regular rate and rhythm Gastrointestinal: normoactive bowel sounds, non-distended Extremities: no cyanosis, no cyanosis, no cyanosis Neurologic: normal mental status, non-focal exam Psychiatric: mood appropriate, affect normal CBC and BMP: 10/31/17 05:40 10/31/17 05:40 ABG, PT/INR, D-dimer: PT/INR, D-dimer PT 21.5 Sec. (12.2-14.9) H 11/01/17 05:05 INR 1.76 (0.87-1.13) H 11/01/17 05:05 Abnormal lab findings: Abnormal Labs 10/25/17 10/25/17 10/25/17 16:52 16:52 18:06 WBC 15.2 H MCV MCH Lymph % (Auto) 6.5 L [place] % (Auto) 10.9 H Lymph # 1.0 L [place] # 1.6 H Seg Neutrophils % 81.3 H Seg Neutrophils # 12.3 H PT 16.2 H INR 1.23 H APTT 39.4 H Sodium 132 L Potassium 6.6 H* Chloride 88.5 L Carbon Dioxide Creatinine 0.6 L Glucose 112 H Total Creatine Kinase CK-MB (CK-2) Rel Index Troponin T NT-Pro-B Natriuret Pep HDL Cholesterol Digoxin 10/25/17 10/25/17 10/26/17 18:06 18:06 06:14 WBC MCV MCH Lymph % (Auto) [place] % (Auto) Lymph # [place] # Seg Neutrophils % Seg Neutrophils # PT 16.9 H INR 1.30 H APTT Sodium Potassium 6.4 H* Chloride Carbon Dioxide Creatinine Glucose Total Creatine Kinase CK-MB (CK-2) Rel Index Troponin T NT-Pro-B Natriuret Pep 5652 H HDL Cholesterol Digoxin 10/26/17 10/26/17 10/26/17 09:32 10:29 10:29 WBC MCV MCH Lymph % (Auto) [place] % (Auto) Lymph # [place] # Seg Neutrophils % Seg Neutrophils # PT INR APTT Sodium Potassium Chloride 94.0 L 92.9 L Carbon Dioxide 34 H D 34 H Creatinine 0.6 L 0.7 L Glucose 129 H 167 H Total Creatine Kinase CK-MB (CK-2) Rel Index Troponin T NT-Pro-B Natriuret Pep HDL Cholesterol Digoxin 2.7 H* 10/27/17 10/28/17 10/28/17 07:10 05:17 21:18 WBC MCV MCH Lymph % (Auto) [place] % (Auto) Lymph # [place] # Seg Neutrophils % Seg Neutrophils # PT 19.0 H 24.4 H INR 1.51 H 2.06 H APTT Sodium Potassium Chloride Carbon Dioxide Creatinine Glucose Total Creatine Kinase 33 L CK-MB (CK-2) Rel Index 4.2 H Troponin T 0.062 H D NT-Pro-B Natriuret Pep HDL Cholesterol 21 L Digoxin 10/29/17 10/29/17 10/29/17 Unknown Unknown Unknown WBC 12.5 H MCV 83 L MCH 27 L Lymph % (Auto) [place] % (Auto) Lymph # [place] # Seg Neutrophils % Seg Neutrophils # PT 24.8 H INR 2.10 H APTT Sodium Potassium Chloride 93.0 L Carbon Dioxide 34 H Creatinine 0.6 L Glucose Total Creatine Kinase CK-MB (CK-2) Rel Index Troponin T NT-Pro-B Natriuret Pep HDL Cholesterol Digoxin 10/30/17 10/31/17 10/31/17 05:10 05:40 05:40 WBC MCV MCH Lymph % (Auto) 10.6 L [place] % (Auto) 8.9 H Lymph # 1.1 L [place] # 1.0 H Seg Neutrophils % 79.2 H Seg Neutrophils # 8.5 H PT 23.1 H 23.2 H INR 1.92 H 1.93 H APTT Sodium Potassium Chloride Carbon Dioxide Creatinine Glucose Total Creatine Kinase CK-MB (CK-2) Rel Index Troponin T NT-Pro-B Natriuret Pep HDL Cholesterol Digoxin 10/31/17 11/01/17 05:40 05:05 WBC MCV MCH Lymph % (Auto) [place] % (Auto) Lymph # [place] # Seg Neutrophils % Seg Neutrophils # PT 21.5 H INR 1.76 H APTT Sodium Potassium Chloride 92.9 L Carbon Dioxide 33 H Creatinine 0.6 L Glucose 121 H Total Creatine Kinase CK-MB (CK-2) Rel Index Troponin T NT-Pro-B Natriuret Pep HDL Cholesterol Digoxin
[2017-11-01] MEDS: NORVASC PO SCH (16:39)
[2017-11-01] MEDS: ZESTRIL PO SCH (16:40)
[2017-11-01] MEDS: LASIX PO SCH (17:40)
[2017-11-01] MEDS: PRAVACHOL PO SCH (17:41)
[2017-11-01] MEDS: COREG PO SCH (21:29)
[2017-11-02] MEDS: APRESOLINE PO SCH ×5 (06:19→21:58)
[2017-11-02] MEDS: BETAPACE PO SCH ×3 (06:19→21:59)
[2017-11-02] MEDS: ZESTRIL PO SCH ×4 (06:19→21:59)
[2017-11-02] MEDS: LASIX PO SCH ×2 (06:20→17:49)
[2017-11-02] MEDS: COREG PO SCH ×2 (07:42→11:56)
[2017-11-02 08:33] LABS: INR 1.43 (0.87-1.13)
--- NOTE | 2017-11-02 11:47 | XRay Report ---
AP CHEST :11/02/17 11:19 CLINICAL: Immediately status post right thoracentesis with minimal fluid obtained. COMPARISON:10/30/17 FINDINGS: Stable cardiomegaly with redistribution of pulmonary blood flow to the upper lobes. Stable opacification of the right lung base with silhouetting of the right heart border and the right hemidiaphragm. Persistent widening of the right pleural space without significant change. No pneumothorax. IMPRESSION: No pneumothorax status post thoracentesis. Loculated right pleural effusion and right middle lobe and right lower lobe consolidation.
--- NOTE | 2017-11-02 11:50 | Ultrasound Report ---
ULTRASOUND GUIDED RIGHT THORACENTESIS: 11/02/17 08:00:00 CLINICAL: Right pleural effusion. FINDINGS: Ultrasound demonstrated a moderate sized right pleural effusion. The procedure was explained to the patient and all questions answered. Informed consent was obtained. Using sterile technique, ultrasound guidance, 1% lidocaine and a 5-[place] catheter, right thoracentesis was performed with the patient sitting upright. Since the right hemidiaphragm appeared elevated with a liver extending to the mid right hemithorax, shows a spot relatively high and posterior. However, only approximately 3 cc of dark bloody fluid was removed. I did not resected patient for attempt to obtain additional fluid. The patient tolerated the procedure well and there were no apparent complications. Post procedure chest x-ray showed no pneumothorax with a persistent loculated right pleural effusion. IMPRESSION: Uncomplicated right thoracentesis with minimal dark bloody fluid removed.
[2017-11-02] MEDS: VITAMIN C PO SCH (11:55)
[2017-11-02] MEDS: ALLBEE WITH C PO SCH (11:55)
[2017-11-02] MEDS: PEPCID PO SCH ×2 (11:55→21:36)
[2017-11-02] MEDS: LEVAQUIN PO SCH (11:56)
[2017-11-02] MEDS: NORVASC PO SCH ×2 (11:56→12:02)
--- NOTE | 2017-11-02 12:00 | Progress Note ---
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 Loculated right pleural effusion We will proceed with diagnostic thoracentesis when INR is <1.4. Also per pulmonary, additional treatment probably includes thoracic surgery consultation for eventual decortication of the lung however, this may not be possible in the context of severe cardiomyopathy with ejection fraction of 10-15%. Repeat chest x-ray reveals large right pleural effusion with chest compresses the right middle and lower lobes. Hyperkalemia - improved Supratherapeutic digoxin level - dig level 2.7 on admission; digoxin held Hypertension. Continue antihypertensive medications. Hyperlipidemia. Continue current management. Paroxysmal atrial fibrillation. Patient currently on Coumadin, which will be held for the ultrasound-guided thoracentesis in a.m. NSVT Disposition. Case management reports patient is out of network. Attempted to transfer to Hospital within. History Interval history: no new issues Hospitalist Physical - Constitutional Vitals: Temp Pulse Resp BP Pulse Ox 97.9 F 79 18 123/66 97 11/02/17 08:44 11/02/17 08:56 11/02/17 08:44 11/02/17 08:44 11/02/17 08:44 General appearance: Present: no acute distress, well-nourished - EENT Eyes: Present: PERRL, EOM intact ENT: hearing intact, clear oral mucosa, dentition normal - Neck Neck: Present: supple, normal ROM - Respiratory Respiratory effort: normal Respiratory: bilateral: CTA - Cardiovascular Rhythm: regular Heart Sounds: Present: S1 & S2. Absent: gallop, rub - Extremities Extremities: no ischemia, No edema, Full ROM - Abdominal General gastrointestinal: soft, non-tender, non-distended, normal bowel sounds - Integumentary Integumentary: Present: clear, warm, dry - Neurologic Neurologic: CNII-XII intact, moves all extremities Results - Labs CBC & Chem 7: 10/31/17 05:40 10/31/17 05:40 Labs: Laboratory Last Values WBC 10.8 K/mm3 (4.5-11.0) 10/31/17 05:40 RBC 4.29 M/mm3 (3.65-5.03) 10/31/17 05:40 Hgb 11.9 gm/dl (11.8-15.2) 10/31/17 05:40 Hct 36.3 % (35.5-45.6) 10/31/17 05:40 MCV 84 fl (84-94) 10/31/17 05:40 MCH 28 pg (28-32) 10/31/17 05:40 MCHC 33 % (32-34) 10/31/17 05:40 RDW 14.9 % (13.2-15.2) 10/31/17 05:40 Plt Count 357 K/mm3 (140-440) 10/31/17 05:40 Lymph % (Auto) 10.6 % (13.4-35.0) L 10/31/17 05:40 [place] % (Auto) 8.9 % (0.0-7.3) H 10/31/17 05:40 Eos % (Auto) 0.7 % (0.0-4.3) 10/31/17 05:40 Baso % (Auto) 0.6 % (0.0-1.8) 10/31/17 05:40 Lymph # 1.1 K/mm3 (1.2-5.4) L 10/31/17 05:40 [place] # 1.0 K/mm3 (0.0-0.8) H 10/31/17 05:40 Eos # 0.1 K/mm3 (0.0-0.4) 10/31/17 05:40 Baso # 0.1 K/mm3 (0.0-0.1) 10/31/17 05:40 Seg Neutrophils % 79.2 % (40.0-70.0) H 10/31/17 05:40 Seg Neutrophils # 8.5 K/mm3 (1.8-7.7) H 10/31/17 05:40 PT 18.2 Sec. (12.2-14.9) H 11/02/17 07:50 INR 1.43 (0.87-1.13) H 11/02/17 07:50 APTT 39.4 Sec. (24.2-36.6) H 10/25/17 18:06 Sodium 138 mmol/L (137-145) 10/31/17 05:40 Potassium 4.4 mmol/L (3.6-5.0) 10/31/17 05:40 Chloride 92.9 mmol/L (98-107) L 10/31/17 05:40 Carbon Dioxide 33 mmol/L (22-30) H 10/31/17 05:40 Anion Gap 17 mmol/L 10/31/17 05:40 BUN 16 mg/dL (9-20) 10/31/17 05:40 Creatinine 0.6 mg/dL (0.8-1.5) L 10/31/17 05:40 Estimated GFR > 60 ml/min 10/31/17 05:40 BUN/Creatinine Ratio 27 % 10/31/17 05:40 Glucose 121 mg/dL (75-100) H 10/31/17 05:40 POC Glucose 102 (70-105) 10/25/17 20:07 Calcium 8.8 mg/dL (8.4-10.2) 10/31/17 05:40 Magnesium 2.10 mg/dL (1.7-2.3) 10/30/17 05:10 Total Creatine Kinase 33 units/L (55-170) L 10/28/17 21:18 CK-MB (CK-2) 1.4 ng/mL (0.0-4.0) 10/28/17 21:18 CK-MB (CK-2) Rel Index 4.2 (0-4) H 10/28/17 21:18 Troponin T 0.062 ng/mL (0.00-0.029) H D 10/28/17 21:18 NT-Pro-B Natriuret Pep 5652 pg/mL (0-900) H 10/25/17 18:06 Triglycerides 59 mg/dL (2-149) 10/28/17 21:18 Cholesterol 107 mg/dL (50-199) 10/28/17 21:18 LDL Cholesterol Direct 75 mg/dL (50-130) 10/28/17 21:18 HDL Cholesterol 21 mg/dL (40-59) L 10/28/17 21:18 Cholesterol/HDL Ratio 5.09 % 10/28/17 21:18 Amylase 35 units/L (27-131) 10/31/17 05:40 Digoxin 2.7 ng/mL (0.9-2.0) H* 10/26/17 10:29
--- NOTE | 2017-11-02 12:09 | Progress Note ---
Assessment and Plan Assessment: Acute on chronic combined systolic and diastolic heart failure * clinically near euvolemia Loculated right pleural effusion Dilated NICMP - EF 10-15% AICD in situ Hyperkalemia - improved Supratherapeutic digoxin level - dig level 2.7 on admission; digoxin held HTN HLP Paroxysmal atrial fibrillation NSVT Plan: cont po lasix. Cont all other present cardiac management. For thoracentesis once INR is 1.4 per primary RN. Cont to hold coumadin. Assessment and plan reviewed with pt at bedside. Subjective Date of service: 11/02/17 Principal diagnosis: HF, pleural effusion Objective Vital Signs Temp Pulse Resp BP BP Pulse Ox 11/02/17 08:56 79 11/02/17 08:44 97.9 F 92 H 18 123/66 97 11/02/17 05:44 98.8 F 88 20 101/64 93 11/02/17 00:14 98.1 F 88 20 114/56 96 11/01/17 21:30 18 11/01/17 21:29 85 113/53 11/01/17 21:28 99.3 F 85 20 113/53 93 11/01/17 21:24 88 94 11/01/17 21:23 99.3 F 83 18 113/53 94 11/01/17 19:37 86 11/01/17 16:40 101/54 11/01/17 16:39 101/54 11/01/17 16:29 97.7 F 71 20 124/59 96 11/01/17 15:58 97.7 F 58 L 20 96 11/01/17 15:56 97.7 F 42 L 20 124/39 95 11/01/17 12:34 97.9 F 72 20 112/56 94 11/01/17 12:11 97.9 F 63 20 112/56 93 - Physical Examination General: No Apparent Distress HEENT: Positive: PERRL, Normocephaly Neck: Positive: neck supple, Carotid Upstroke (2+ bilat). Negative: JVD/HJR, Bruit Neuro: Positive: Grossly Intact Abdomen: Positive: Soft. Negative: Tender Skin: Positive: Clear Musculoskeletal: Normal Range of Motion Extremities: Present: Other (peripheral pulses intact). Absent: Clubbing, Cyanosis - Labs and Meds Coagulation 11/02/17 Range/Units 07:50 PT 18.2 H (12.2-14.9) Sec. INR 1.43 H (0.87-1.13) - Imaging and Cardiology Echo: report reviewed (06/2016: EF 10-15%, LA mod dilated, RA mildly dilated, trace TR, LV severely dilated, impaired relaxation, RV mildly dilated with normal systolic function) Chamber hypertrophy or enlargement: left ventricular hypertro Repolarization changes or abnormalities: repolarization abn secondary to ventricular hypertrophy
--- NOTE | 2017-11-02 16:51 | Progress Note ---
Assessment and Plan Shortness of breath. Secondary to restrictive lung disease, pleural effusion, elevated hemidiaphragm, in the context of congestive failure. Stable, no change Right lung with pleural effusion. Review of the patient's films show combination of factors, no prior tap data; -Loculated pleural effusion on the right side per CT, failed attempted thoracentesis - Chronically elevated right hemidiaphragm since 2008. This according to the patient's films reviewed. Congestive heart failure with low ejection fraction approximately 10-15%, see cardiology comments Recommendation: Ideally would recommend decortication however given patient's poor cardiac status and relative lack of symptoms, we may consider just observation. Would like cardiology's input regarding risk office thoracic surgery. Subjective Date of service: 11/02/17 Principal diagnosis: HF, pleural effusion Interval history: No significant shortness of breath. Underwent attempted thoracentesis no significant amount of fluid could be withdrawn. Objective Vital Signs - 12hr 11/02/17 11/02/17 11/02/17 05:44 08:44 08:56 Temperature 98.8 F 97.9 F Pulse Rate 88 92 H 79 Respiratory 20 18 Rate Blood Pressure 101/64 123/66 O2 Sat by Pulse 93 97 Oximetry Constitutional: no acute distress, alert Eyes: non-icteric ENT: oropharynx moist Neck: supple Ascultation: Right: diminished breath sounds, rales (base), Left: clear Cardiovascular: regular rate and rhythm Gastrointestinal: normoactive bowel sounds, non-distended Extremities: no cyanosis, no cyanosis, no cyanosis Neurologic: normal mental status, non-focal exam Psychiatric: mood appropriate, affect normal CBC and BMP: 10/31/17 05:40 10/31/17 05:40 ABG, PT/INR, D-dimer: PT/INR, D-dimer PT 18.2 Sec. (12.2-14.9) H 11/02/17 07:50 INR 1.43 (0.87-1.13) H 11/02/17 07:50 Abnormal lab findings: Abnormal Labs 10/25/17 10/25/17 10/25/17 16:52 16:52 18:06 WBC 15.2 H MCV MCH Lymph % (Auto) 6.5 L [place] % (Auto) 10.9 H Lymph # 1.0 L [place] # 1.6 H Seg Neutrophils % 81.3 H Seg Neutrophils # 12.3 H PT 16.2 H INR 1.23 H APTT 39.4 H Sodium 132 L Potassium 6.6 H* Chloride 88.5 L Carbon Dioxide Creatinine 0.6 L Glucose 112 H Total Creatine Kinase CK-MB (CK-2) Rel Index Troponin T NT-Pro-B Natriuret Pep HDL Cholesterol Digoxin 10/25/17 10/25/17 10/26/17 18:06 18:06 06:14 WBC MCV MCH Lymph % (Auto) [place] % (Auto) Lymph # [place] # Seg Neutrophils % Seg Neutrophils # PT 16.9 H INR 1.30 H APTT Sodium Potassium 6.4 H* Chloride Carbon Dioxide Creatinine Glucose Total Creatine Kinase CK-MB (CK-2) Rel Index Troponin T NT-Pro-B Natriuret Pep 5652 H HDL Cholesterol Digoxin 10/26/17 10/26/17 10/26/17 09:32 10:29 10:29 WBC MCV MCH Lymph % (Auto) [place] % (Auto) Lymph # [place] # Seg Neutrophils % Seg Neutrophils # PT INR APTT Sodium Potassium Chloride 94.0 L 92.9 L Carbon Dioxide 34 H D 34 H Creatinine 0.6 L 0.7 L Glucose 129 H 167 H Total Creatine Kinase CK-MB (CK-2) Rel Index Troponin T NT-Pro-B Natriuret Pep HDL Cholesterol Digoxin 2.7 H* 10/27/17 10/28/17 10/28/17 07:10 05:17 21:18 WBC MCV MCH Lymph % (Auto) [place] % (Auto) Lymph # [place] # Seg Neutrophils % Seg Neutrophils # PT 19.0 H 24.4 H INR 1.51 H 2.06 H APTT Sodium Potassium Chloride Carbon Dioxide Creatinine Glucose Total Creatine Kinase 33 L CK-MB (CK-2) Rel Index 4.2 H Troponin T 0.062 H D NT-Pro-B Natriuret Pep HDL Cholesterol 21 L Digoxin 10/29/17 10/29/17 10/29/17 Unknown Unknown Unknown WBC 12.5 H MCV 83 L MCH 27 L Lymph % (Auto) [place] % (Auto) Lymph # [place] # Seg Neutrophils % Seg Neutrophils # PT 24.8 H INR 2.10 H APTT Sodium Potassium Chloride 93.0 L Carbon Dioxide 34 H Creatinine 0.6 L Glucose Total Creatine Kinase CK-MB (CK-2) Rel Index Troponin T NT-Pro-B Natriuret Pep HDL Cholesterol Digoxin 10/30/17 10/31/17 10/31/17 05:10 05:40 05:40 WBC MCV MCH Lymph % (Auto) 10.6 L [place] % (Auto) 8.9 H Lymph # 1.1 L [place] # 1.0 H Seg Neutrophils % 79.2 H Seg Neutrophils # 8.5 H PT 23.1 H 23.2 H INR 1.92 H 1.93 H APTT Sodium Potassium Chloride Carbon Dioxide Creatinine Glucose Total Creatine Kinase CK-MB (CK-2) Rel Index Troponin T NT-Pro-B Natriuret Pep HDL Cholesterol Digoxin 10/31/17 11/01/17 11/02/17 05:40 05:05 07:50 WBC MCV MCH Lymph % (Auto) [place] % (Auto) Lymph # [place] # Seg Neutrophils % Seg Neutrophils # PT 21.5 H 18.2 H INR 1.76 H 1.43 H APTT Sodium Potassium Chloride 92.9 L Carbon Dioxide 33 H Creatinine 0.6 L Glucose 121 H Total Creatine Kinase CK-MB (CK-2) Rel Index Troponin T NT-Pro-B Natriuret Pep HDL Cholesterol Digoxin
[2017-11-02] MEDS: PRAVACHOL PO SCH (17:48)
[2017-11-02] MEDS: COUMADIN PO SCH (17:48)
[2017-11-03] MEDS: COREG PO SCH ×3 (00:58→22:00)
[2017-11-03 06:14] LABS: Basophils % (Auto) 0.4 % (0.0-1.8); Eosinophils % (Auto) 0.5 % (0.0-4.3); Hematocrit 37.9 % (35.5-45.6); Hemoglobin 12.3 gm/dl (11.8-15.2); Lymphocytes # (Auto) 1.1 K/mm3 (1.2-5.4); Lymphocytes % (Auto) 13.4 % (13.4-35.0); Mean Corpuscular HGB Conc 33 % (32-34); Mean Corpuscular Hemoglobin 28 pg (28-32); Mean Corpuscular Volume 85 fl (84-94); Monocytes % (Auto) 11.5 % (0.0-7.3); Platelet Count 323 K/mm3 (140-440); Red Blood Count 4.46 M/mm3 (3.65-5.03); Red Cell Distribution Width 14.7 % (13.2-15.2)
[2017-11-03 06:21] LABS: INR 1.41 (0.87-1.13)
[2017-11-03] MEDS: LASIX PO SCH ×2 (06:32→20:20)
[2017-11-03 06:35] LABS: BUN/Creatinine Ratio 20; Blood Urea Nitrogen 12 mg/dL (9-20); Calcium 8.9 mg/dL (8.4-10.2); Hemolysis Index 5
--- NOTE | 2017-11-03 10:14 | Progress Note ---
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 Loculated right pleural effusion Patient with failed attempt thoracentesis yesterday. Only 3 mL of bloody fluid obtained. Follow up studies. Pulmonology recommends decortication however given patient's poor cardiac status and relative lack of symptoms, we will consider just observation. Hyperkalemia - improved Supratherapeutic digoxin level - dig level 2.7 on admission; digoxin held Hypertension. Continue antihypertensive medications. Hyperlipidemia. Continue current management. Paroxysmal atrial fibrillation. Resume Coumadin NSVT Disposition. Case management reports patient is out of network. Attempted to transfer to Hospital within network, but all facilities on diversion.. History Interval history: no new issues Hospitalist Physical - Constitutional Vitals: Temp Pulse Resp BP Pulse Ox 98.6 F 88 20 125/71 98 11/03/17 04:34 11/03/17 04:34 11/03/17 04:34 11/03/17 04:34 11/03/17 04:34 General appearance: Present: no acute distress, well-nourished - EENT Eyes: Present: PERRL, EOM intact ENT: hearing intact, clear oral mucosa, dentition normal - Neck Neck: Present: supple, normal ROM - Respiratory Respiratory effort: normal Respiratory: bilateral: CTA - Cardiovascular Rhythm: regular Heart Sounds: Present: S1 & S2. Absent: gallop, rub - Extremities Extremities: no ischemia, No edema, Full ROM - Abdominal General gastrointestinal: soft, non-tender, non-distended, normal bowel sounds - Integumentary Integumentary: Present: clear, warm, dry - Neurologic Neurologic: CNII-XII intact, moves all extremities Results - Labs CBC & Chem 7: 11/03/17 05:35 11/03/17 05:05 Labs: Laboratory Last Values WBC 8.5 K/mm3 (4.5-11.0) 11/03/17 05:35 RBC 4.46 M/mm3 (3.65-5.03) 11/03/17 05:35 Hgb 12.3 gm/dl (11.8-15.2) 11/03/17 05:35 Hct 37.9 % (35.5-45.6) 11/03/17 05:35 MCV 85 fl (84-94) 11/03/17 05:35 MCH 28 pg (28-32) 11/03/17 05:35 MCHC 33 % (32-34) 11/03/17 05:35 RDW 14.7 % (13.2-15.2) 11/03/17 05:35 Plt Count 323 K/mm3 (140-440) 11/03/17 05:35 Lymph % (Auto) 13.4 % (13.4-35.0) 11/03/17 05:35 [place] % (Auto) 11.5 % (0.0-7.3) H 11/03/17 05:35 Eos % (Auto) 0.5 % (0.0-4.3) 11/03/17 05:35 Baso % (Auto) 0.4 % (0.0-1.8) 11/03/17 05:35 Lymph # 1.1 K/mm3 (1.2-5.4) L 11/03/17 05:35 [place] # 1.0 K/mm3 (0.0-0.8) H 11/03/17 05:35 Eos # 0.0 K/mm3 (0.0-0.4) 11/03/17 05:35 Baso # 0.0 K/mm3 (0.0-0.1) 11/03/17 05:35 Seg Neutrophils % 74.2 % (40.0-70.0) H 11/03/17 05:35 Seg Neutrophils # 6.3 K/mm3 (1.8-7.7) 11/03/17 05:35 PT 18.0 Sec. (12.2-14.9) H 11/03/17 04:50 INR 1.41 (0.87-1.13) H 11/03/17 04:50 APTT 39.4 Sec. (24.2-36.6) H 10/25/17 18:06 Sodium 136 mmol/L (137-145) L 11/03/17 05:05 Potassium 4.4 mmol/L (3.6-5.0) 11/03/17 05:05 Chloride 95.1 mmol/L (98-107) L 11/03/17 05:05 Carbon Dioxide 31 mmol/L (22-30) H 11/03/17 05:05 Anion Gap 14 mmol/L 11/03/17 05:05 BUN 12 mg/dL (9-20) 11/03/17 05:05 Creatinine 0.6 mg/dL (0.8-1.5) L 11/03/17 05:05 Estimated GFR > 60 ml/min 11/03/17 05:05 BUN/Creatinine Ratio 20 % 11/03/17 05:05 Glucose 89 mg/dL (75-100) 11/03/17 05:05 POC Glucose 102 (70-105) 10/25/17 20:07 Calcium 8.9 mg/dL (8.4-10.2) 11/03/17 05:05 Magnesium 2.10 mg/dL (1.7-2.3) 10/30/17 05:10 Total Creatine Kinase 33 units/L (55-170) L 10/28/17 21:18 CK-MB (CK-2) 1.4 ng/mL (0.0-4.0) 10/28/17 21:18 CK-MB (CK-2) Rel Index 4.2 (0-4) H 10/28/17 21:18 Troponin T 0.062 ng/mL (0.00-0.029) H D 10/28/17 21:18 NT-Pro-B Natriuret Pep 5652 pg/mL (0-900) H 10/25/17 18:06 Triglycerides 59 mg/dL (2-149) 10/28/17 21:18 Cholesterol 107 mg/dL (50-199) 10/28/17 21:18 LDL Cholesterol Direct 75 mg/dL (50-130) 10/28/17 21:18 HDL Cholesterol 21 mg/dL (40-59) L 10/28/17 21:18 Cholesterol/HDL Ratio 5.09 % 10/28/17 21:18 Amylase 35 units/L (27-131) 10/31/17 05:40 Digoxin 2.7 ng/mL (0.9-2.0) H* 10/26/17 10:29
--- NOTE | 2017-11-03 11:29 | Progress Note ---
Assessment and Plan Assessment: Acute on chronic combined systolic and diastolic heart failure * clinically euvolemic Loculated right pleural effusion Dilated NICMP - EF 10-15% AICD in situ Hyperkalemia - improved Supratherapeutic digoxin level - dig level 2.7 on admission; digoxin held HTN HLP Paroxysmal atrial fibrillation NSVT Plan: cont po lasix. Cont all other present cardiac management. pt is at intermediate to high risk for contemplated decortication procedure, but no absolute cardiac contraindication is present If pt is not going to have procedure would restart coumadin Assessment and plan reviewed with pt at bedside. Subjective Date of service: 11/03/17 Principal diagnosis: HF, pleural effusion Interval history: feels well Objective Vital Signs Temp Pulse Resp BP Pulse Ox 11/03/17 04:34 98.6 F 88 20 125/71 98 11/03/17 00:12 98.2 F 91 H 20 102/56 99 11/02/17 23:00 84 11/02/17 21:59 95/60 11/02/17 21:58 95/60 11/02/17 20:03 97.7 F 82 20 95/60 95 11/02/17 17:09 99.7 F H 96 H 18 116/64 95 - Physical Examination General: No Apparent Distress HEENT: Positive: PERRL, Normocephaly Neck: Positive: neck supple, Carotid Upstroke (2+ bilat). Negative: JVD/HJR, Bruit Neuro: Positive: Grossly Intact Abdomen: Positive: Soft. Negative: Tender Skin: Positive: Clear Musculoskeletal: Normal Range of Motion Extremities: Present: Other (peripheral pulses intact). Absent: Clubbing, Cyanosis - Labs and Meds Coagulation 11/03/17 Range/Units 04:50 PT 18.0 H (12.2-14.9) Sec. INR 1.41 H (0.87-1.13) CBC 11/03/17 Range/Units 05:35 WBC 8.5 (4.5-11.0) K/mm3 RBC 4.46 (3.65-5.03) M/mm3 Hgb 12.3 (11.8-15.2) gm/dl Hct 37.9 (35.5-45.6) % Plt Count 323 (140-440) K/mm3 Lymph # 1.1 L (1.2-5.4) K/mm3 [place] # 1.0 H (0.0-0.8) K/mm3 Eos # 0.0 (0.0-0.4) K/mm3 Baso # 0.0 (0.0-0.1) K/mm3 Comprehensive Metabolic Panel 11/03/17 Range/Units 05:05 Sodium 136 L (137-145) mmol/L Potassium 4.4 (3.6-5.0) mmol/L Chloride 95.1 L (98-107) mmol/L Carbon Dioxide 31 H (22-30) mmol/L BUN 12 (9-20) mg/dL Creatinine 0.6 L (0.8-1.5) mg/dL Glucose 89 (75-100) mg/dL Calcium 8.9 (8.4-10.2) mg/dL - Imaging and Cardiology Echo: report reviewed (06/2016: EF 10-15%, LA mod dilated, RA mildly dilated, trace TR, LV severely dilated, impaired relaxation, RV mildly dilated with normal systolic function) Chamber hypertrophy or enlargement: left ventricular hypertro Repolarization changes or abnormalities: repolarization abn secondary to ventricular hypertrophy
[2017-11-03] MEDS: BETAPACE PO SCH ×2 (13:29→22:00)
[2017-11-03] MEDS: ALLBEE WITH C PO SCH (13:33)
[2017-11-03] MEDS: PEPCID PO SCH ×2 (13:34→23:17)
[2017-11-03] MEDS: VITAMIN C PO SCH (13:35)
[2017-11-03] MEDS: ANTIVERT PO PRN (13:35)
[2017-11-03] MEDS: ZESTRIL PO SCH ×2 (13:36→22:00)
[2017-11-03] MEDS: NORVASC PO SCH (13:37)
[2017-11-03] MEDS: APRESOLINE PO SCH ×2 (13:37→22:00)
[2017-11-03] MEDS: LEVAQUIN PO SCH (13:37)
--- NOTE | 2017-11-03 17:17 | Progress Note ---
Assessment and Plan Shortness of breath. Secondary to restrictive lung disease, pleural effusion, elevated hemidiaphragm, in the context of congestive failure. Stable, no change Right lung with pleural effusion. Review of the patient's films show combination of factors, no prior tap data; -Loculated pleural effusion on the right side per CT, failed attempted thoracentesis - Chronically elevated right hemidiaphragm since 2008. This according to the patient's films reviewed. Congestive heart failure with low ejection fraction approximately 10-15%, see cardiology comments Recommendation: Ideally would recommend decortication however given patient's poor cardiac status and relative lack of symptoms, we may consider just observation. Would like cardiology's input regarding risk for thoracic surgery. Subjective Date of service: 11/03/17 Principal diagnosis: HF, pleural effusion Interval history: No significant shortness of breath. Underwent attempted thoracentesis on Saturday no significant amount of fluid could be withdrawn. Objective Vital Signs - 12hr 11/03/17 11/03/17 11/03/17 13:29 13:34 13:36 Pulse Rate 98 H 98 H Blood Pressure 93/49 11/03/17 13:37 Pulse Rate Blood Pressure 93/49 Constitutional: no acute distress, alert Eyes: non-icteric ENT: oropharynx moist Neck: supple Ascultation: Right: diminished breath sounds, rales (base), Left: clear Cardiovascular: regular rate and rhythm Gastrointestinal: normoactive bowel sounds, non-distended Extremities: no cyanosis, no cyanosis, no cyanosis Neurologic: normal mental status, non-focal exam Psychiatric: mood appropriate, affect normal CBC and BMP: 11/03/17 05:35 11/03/17 05:05 ABG, PT/INR, D-dimer: PT/INR, D-dimer PT 18.0 Sec. (12.2-14.9) H 11/03/17 04:50 INR 1.41 (0.87-1.13) H 11/03/17 04:50 Abnormal lab findings: Abnormal Labs 10/25/17 10/25/17 10/25/17 16:52 16:52 18:06 WBC 15.2 H MCV MCH Lymph % (Auto) 6.5 L [place] % (Auto) 10.9 H Lymph # 1.0 L [place] # 1.6 H Seg Neutrophils % 81.3 H Seg Neutrophils # 12.3 H PT 16.2 H INR 1.23 H APTT 39.4 H Sodium 132 L Potassium 6.6 H* Chloride 88.5 L Carbon Dioxide Creatinine 0.6 L Glucose 112 H Total Creatine Kinase CK-MB (CK-2) Rel Index Troponin T NT-Pro-B Natriuret Pep HDL Cholesterol Digoxin 10/25/17 10/25/17 10/26/17 18:06 18:06 06:14 WBC MCV MCH Lymph % (Auto) [place] % (Auto) Lymph # [place] # Seg Neutrophils % Seg Neutrophils # PT 16.9 H INR 1.30 H APTT Sodium Potassium 6.4 H* Chloride Carbon Dioxide Creatinine Glucose Total Creatine Kinase CK-MB (CK-2) Rel Index Troponin T NT-Pro-B Natriuret Pep 5652 H HDL Cholesterol Digoxin 10/26/17 10/26/17 10/26/17 09:32 10:29 10:29 WBC MCV MCH Lymph % (Auto) [place] % (Auto) Lymph # [place] # Seg Neutrophils % Seg Neutrophils # PT INR APTT Sodium Potassium Chloride 94.0 L 92.9 L Carbon Dioxide 34 H D 34 H Creatinine 0.6 L 0.7 L Glucose 129 H 167 H Total Creatine Kinase CK-MB (CK-2) Rel Index Troponin T NT-Pro-B Natriuret Pep HDL Cholesterol Digoxin 2.7 H* 10/27/17 10/28/17 10/28/17 07:10 05:17 21:18 WBC MCV MCH Lymph % (Auto) [place] % (Auto) Lymph # [place] # Seg Neutrophils % Seg Neutrophils # PT 19.0 H 24.4 H INR 1.51 H 2.06 H APTT Sodium Potassium Chloride Carbon Dioxide Creatinine Glucose Total Creatine Kinase 33 L CK-MB (CK-2) Rel Index 4.2 H Troponin T 0.062 H D NT-Pro-B Natriuret Pep HDL Cholesterol 21 L Digoxin 10/29/17 10/29/17 10/29/17 Unknown Unknown Unknown WBC 12.5 H MCV 83 L MCH 27 L Lymph % (Auto) [place] % (Auto) Lymph # [place] # Seg Neutrophils % Seg Neutrophils # PT 24.8 H INR 2.10 H APTT Sodium Potassium Chloride 93.0 L Carbon Dioxide 34 H Creatinine 0.6 L Glucose Total Creatine Kinase CK-MB (CK-2) Rel Index Troponin T NT-Pro-B Natriuret Pep HDL Cholesterol Digoxin 10/30/17 10/31/17 10/31/17 05:10 05:40 05:40 WBC MCV MCH Lymph % (Auto) 10.6 L [place] % (Auto) 8.9 H Lymph # 1.1 L [place] # 1.0 H Seg Neutrophils % 79.2 H Seg Neutrophils # 8.5 H PT 23.1 H 23.2 H INR 1.92 H 1.93 H APTT Sodium Potassium Chloride Carbon Dioxide Creatinine Glucose Total Creatine Kinase CK-MB (CK-2) Rel Index Troponin T NT-Pro-B Natriuret Pep HDL Cholesterol Digoxin 10/31/17 11/01/17 11/02/17 05:40 05:05 07:50 WBC MCV MCH Lymph % (Auto) [place] % (Auto) Lymph # [place] # Seg Neutrophils % Seg Neutrophils # PT 21.5 H 18.2 H INR 1.76 H 1.43 H APTT Sodium Potassium Chloride 92.9 L Carbon Dioxide 33 H Creatinine 0.6 L Glucose 121 H Total Creatine Kinase CK-MB (CK-2) Rel Index Troponin T NT-Pro-B Natriuret Pep HDL Cholesterol Digoxin 11/03/17 11/03/17 11/03/17 04:50 05:05 05:35 WBC MCV MCH Lymph % (Auto) [place] % (Auto) 11.5 H Lymph # 1.1 L [place] # 1.0 H Seg Neutrophils % 74.2 H Seg Neutrophils # PT 18.0 H INR 1.41 H APTT Sodium 136 L Potassium Chloride 95.1 L Carbon Dioxide 31 H Creatinine 0.6 L Glucose Total Creatine Kinase CK-MB (CK-2) Rel Index Troponin T NT-Pro-B Natriuret Pep HDL Cholesterol Digoxin
[2017-11-03] MEDS: COUMADIN PO SCH (20:20)
[2017-11-03] MEDS: PRAVACHOL PO SCH (20:20)
[2017-11-04 07:02] LABS: Basophils % (Auto) 0.4 % (0.0-1.8); Eosinophils # (Auto) 0.1 K/mm3 (0.0-0.4); Eosinophils % (Auto) 0.9 % (0.0-4.3); Hematocrit 35.5 % (35.5-45.6); Hemoglobin 11.5 gm/dl (11.8-15.2); Lymphocytes # (Auto) 1.4 K/mm3 (1.2-5.4); Lymphocytes % (Auto) 16.3 % (13.4-35.0); Mean Corpuscular HGB Conc 33 % (32-34); Mean Corpuscular Hemoglobin 28 pg (28-32); Mean Corpuscular Volume 85 fl (84-94); Monocytes # (Auto) 1.1 K/mm3 (0.0-0.8); Monocytes % (Auto) 12.8 % (0.0-7.3); Platelet Count 311 K/mm3 (140-440); Red Cell Distribution Width 14.7 % (13.2-15.2)
[2017-11-04 07:12] LABS: INR 1.38 (0.87-1.13)
[2017-11-04 07:25] LABS: BUN/Creatinine Ratio 22; Blood Urea Nitrogen 13 mg/dL (9-20); Calcium 8.9 mg/dL (8.4-10.2); Hemolysis Index 14
--- NOTE | 2017-11-04 08:55 | Progress Note ---
Assessment and Plan 57 y/o female with CHF and right sided pleural effusion, status post unsuccessful thoracentesis. 1. Reviewed CT. With pleural thickening, this effusion has likely been present for quite sometime and patient may have an element of trapped lung associated with this. With unsuccessful tap, may have been subdiaphragamatic as he does have elevated hemidiaphragm or the pleural thickening would not allow proper passage of needle or catheter. These are assumptions as I did not attempt the procedure. In regards to decortication, in my personal, professional opinion, I do not feel that the benefits outweigh the risk of doing this procedure. Patient is on room air and his shortness of breath has improved. We are more so debating on treating imaging and not the clinical manifestations in the patient. You can ask CT surgery, but I feel they would agree with my assessment in this standpoint. Any questions, please feel free to call. Subjective Date of service: 11/04/17 Principal diagnosis: HF, pleural effusion Interval history: Remains on room air and in no significant distress. Reviewed the chart from last week and this past weekend. Objective Vital Signs - 12hr 11/04/17 11/04/17 00:33 05:43 Temperature 99.2 F 98.4 F Pulse Rate 94 H 91 H Respiratory 17 21 Rate Blood Pressure 95/52 113/66 O2 Sat by Pulse 93 96 Oximetry Constitutional: no acute distress, alert Eyes: non-icteric ENT: oropharynx moist Neck: supple Ascultation: Right: diminished breath sounds, rales (base), Left: clear Cardiovascular: regular rate and rhythm Gastrointestinal: normoactive bowel sounds, non-distended Extremities: no cyanosis, no cyanosis, no cyanosis Neurologic: normal mental status, non-focal exam Psychiatric: mood appropriate, affect normal CBC and BMP: 11/04/17 05:50 11/04/17 05:50 ABG, PT/INR, D-dimer: PT/INR, D-dimer PT 17.7 Sec. (12.2-14.9) H 11/04/17 05:50 INR 1.38 (0.87-1.13) H 11/04/17 05:50 Abnormal lab findings: Abnormal Labs 10/25/17 10/25/17 10/25/17 16:52 16:52 18:06 WBC 15.2 H Hgb MCV MCH Lymph % (Auto) 6.5 L [place] % (Auto) 10.9 H Lymph # 1.0 L [place] # 1.6 H Seg Neutrophils % 81.3 H Seg Neutrophils # 12.3 H PT 16.2 H INR 1.23 H APTT 39.4 H Sodium 132 L Potassium 6.6 H* Chloride 88.5 L Carbon Dioxide Creatinine 0.6 L Glucose 112 H Total Creatine Kinase CK-MB (CK-2) Rel Index Troponin T NT-Pro-B Natriuret Pep HDL Cholesterol Digoxin 10/25/17 10/25/17 10/26/17 18:06 18:06 06:14 WBC Hgb MCV MCH Lymph % (Auto) [place] % (Auto) Lymph # [place] # Seg Neutrophils % Seg Neutrophils # PT 16.9 H INR 1.30 H APTT Sodium Potassium 6.4 H* Chloride Carbon Dioxide Creatinine Glucose Total Creatine Kinase CK-MB (CK-2) Rel Index Troponin T NT-Pro-B Natriuret Pep 5652 H HDL Cholesterol Digoxin 10/26/17 10/26/17 10/26/17 09:32 10:29 10:29 WBC Hgb MCV MCH Lymph % (Auto) [place] % (Auto) Lymph # [place] # Seg Neutrophils % Seg Neutrophils # PT INR APTT Sodium Potassium Chloride 94.0 L 92.9 L Carbon Dioxide 34 H D 34 H Creatinine 0.6 L 0.7 L Glucose 129 H 167 H Total Creatine Kinase CK-MB (CK-2) Rel Index Troponin T NT-Pro-B Natriuret Pep HDL Cholesterol Digoxin 2.7 H* 10/27/17 10/28/17 10/28/17 07:10 05:17 21:18 WBC Hgb MCV MCH Lymph % (Auto) [place] % (Auto) Lymph # [place] # Seg Neutrophils % Seg Neutrophils # PT 19.0 H 24.4 H INR 1.51 H 2.06 H APTT Sodium Potassium Chloride Carbon Dioxide Creatinine Glucose Total Creatine Kinase 33 L CK-MB (CK-2) Rel Index 4.2 H Troponin T 0.062 H D NT-Pro-B Natriuret Pep HDL Cholesterol 21 L Digoxin 10/29/17 10/29/17 10/29/17 Unknown Unknown Unknown WBC 12.5 H Hgb MCV 83 L MCH 27 L Lymph % (Auto) [place] % (Auto) Lymph # [place] # Seg Neutrophils % Seg Neutrophils # PT 24.8 H INR 2.10 H APTT Sodium Potassium Chloride 93.0 L Carbon Dioxide 34 H Creatinine 0.6 L Glucose Total Creatine Kinase CK-MB (CK-2) Rel Index Troponin T NT-Pro-B Natriuret Pep HDL Cholesterol Digoxin 10/30/17 10/31/17 10/31/17 05:10 05:40 05:40 WBC Hgb MCV MCH Lymph % (Auto) 10.6 L [place] % (Auto) 8.9 H Lymph # 1.1 L [place] # 1.0 H Seg Neutrophils % 79.2 H Seg Neutrophils # 8.5 H PT 23.1 H 23.2 H INR 1.92 H 1.93 H APTT Sodium Potassium Chloride Carbon Dioxide Creatinine Glucose Total Creatine Kinase CK-MB (CK-2) Rel Index Troponin T NT-Pro-B Natriuret Pep HDL Cholesterol Digoxin 10/31/17 11/01/17 11/02/17 05:40 05:05 07:50 WBC Hgb MCV MCH Lymph % (Auto) [place] % (Auto) Lymph # [place] # Seg Neutrophils % Seg Neutrophils # PT 21.5 H 18.2 H INR 1.76 H 1.43 H APTT Sodium Potassium Chloride 92.9 L Carbon Dioxide 33 H Creatinine 0.6 L Glucose 121 H Total Creatine Kinase CK-MB (CK-2) Rel Index Troponin T NT-Pro-B Natriuret Pep HDL Cholesterol Digoxin 11/03/17 11/03/17 11/03/17 04:50 05:05 05:35 WBC Hgb MCV MCH Lymph % (Auto) [place] % (Auto) 11.5 H Lymph # 1.1 L [place] # 1.0 H Seg Neutrophils % 74.2 H Seg Neutrophils # PT 18.0 H INR 1.41 H APTT Sodium 136 L Potassium Chloride 95.1 L Carbon Dioxide 31 H Creatinine 0.6 L Glucose Total Creatine Kinase CK-MB (CK-2) Rel Index Troponin T NT-Pro-B Natriuret Pep HDL Cholesterol Digoxin 11/04/17 11/04/17 11/04/17 05:50 05:50 05:50 WBC Hgb 11.5 L MCV MCH Lymph % (Auto) [place] % (Auto) 12.8 H Lymph # [place] # 1.1 H Seg Neutrophils % Seg Neutrophils # PT 17.7 H INR 1.38 H APTT Sodium Potassium Chloride 95.5 L Carbon Dioxide 31 H Creatinine 0.6 L Glucose 73 L Total Creatine Kinase CK-MB (CK-2) Rel Index Troponin T NT-Pro-B Natriuret Pep HDL Cholesterol Digoxin
[2017-11-04] MEDS: NORVASC PO SCH (09:42)
[2017-11-04] MEDS: BETAPACE PO SCH ×2 (10:00→22:00)
--- NOTE | 2017-11-04 11:30 | Progress Note ---
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 Loculated right pleural effusion Patient with failed attempt thoracentesis. Consider CT surgery evaluation. We will discuss the case with Dr. Best. Hyperkalemia - improved Supratherapeutic digoxin level - dig level 2.7 on admission; digoxin held Hypertension. Continue antihypertensive medications. Hyperlipidemia. Continue current management. Paroxysmal atrial fibrillation. Resume Coumadin NSVT Disposition. Case management reports patient is out of network. Attempted to transfer to Hospital within network, but all facilities on diversion.. History Interval history: no new issues Hospitalist Physical - Constitutional Vitals: Temp Pulse Resp BP Pulse Ox 98.3 F 95 H 18 104/53 97 11/04/17 09:02 11/04/17 09:02 11/04/17 09:02 11/04/17 09:02 11/04/17 09:02 General appearance: Present: no acute distress, well-nourished - EENT Eyes: Present: PERRL, EOM intact ENT: hearing intact, clear oral mucosa, dentition normal - Neck Neck: Present: supple, normal ROM - Respiratory Respiratory effort: normal Respiratory: bilateral: CTA - Cardiovascular Rhythm: regular Heart Sounds: Present: S1 & S2. Absent: gallop, rub - Extremities Extremities: no ischemia, No edema, Full ROM - Abdominal General gastrointestinal: soft, non-tender, non-distended, normal bowel sounds - Integumentary Integumentary: Present: clear, warm, dry - Neurologic Neurologic: CNII-XII intact, moves all extremities Results - Labs CBC & Chem 7: 11/04/17 05:50 11/04/17 05:50 Labs: Laboratory Last Values WBC 8.5 K/mm3 (4.5-11.0) 11/04/17 05:50 RBC 4.20 M/mm3 (3.65-5.03) 11/04/17 05:50 Hgb 11.5 gm/dl (11.8-15.2) L 11/04/17 05:50 Hct 35.5 % (35.5-45.6) 11/04/17 05:50 MCV 85 fl (84-94) 11/04/17 05:50 MCH 28 pg (28-32) 11/04/17 05:50 MCHC 33 % (32-34) 11/04/17 05:50 RDW 14.7 % (13.2-15.2) 11/04/17 05:50 Plt Count 311 K/mm3 (140-440) 11/04/17 05:50 Lymph % (Auto) 16.3 % (13.4-35.0) 11/04/17 05:50 [place] % (Auto) 12.8 % (0.0-7.3) H 11/04/17 05:50 Eos % (Auto) 0.9 % (0.0-4.3) 11/04/17 05:50 Baso % (Auto) 0.4 % (0.0-1.8) 11/04/17 05:50 Lymph # 1.4 K/mm3 (1.2-5.4) 11/04/17 05:50 [place] # 1.1 K/mm3 (0.0-0.8) H 11/04/17 05:50 Eos # 0.1 K/mm3 (0.0-0.4) 11/04/17 05:50 Baso # 0.0 K/mm3 (0.0-0.1) 11/04/17 05:50 Seg Neutrophils % 69.6 % (40.0-70.0) 11/04/17 05:50 Seg Neutrophils # 5.9 K/mm3 (1.8-7.7) 11/04/17 05:50 PT 17.7 Sec. (12.2-14.9) H 11/04/17 05:50 INR 1.38 (0.87-1.13) H 11/04/17 05:50 APTT 39.4 Sec. (24.2-36.6) H 10/25/17 18:06 Sodium 137 mmol/L (137-145) 11/04/17 05:50 Potassium 4.9 mmol/L (3.6-5.0) 11/04/17 05:50 Chloride 95.5 mmol/L (98-107) L 11/04/17 05:50 Carbon Dioxide 31 mmol/L (22-30) H 11/04/17 05:50 Anion Gap 15 mmol/L 11/04/17 05:50 BUN 13 mg/dL (9-20) 11/04/17 05:50 Creatinine 0.6 mg/dL (0.8-1.5) L 11/04/17 05:50 Estimated GFR > 60 ml/min 11/04/17 05:50 BUN/Creatinine Ratio 22 % 11/04/17 05:50 Glucose 73 mg/dL (75-100) L 11/04/17 05:50 POC Glucose 102 (70-105) 10/25/17 20:07 Calcium 8.9 mg/dL (8.4-10.2) 11/04/17 05:50 Magnesium 2.10 mg/dL (1.7-2.3) 10/30/17 05:10 Total Creatine Kinase 33 units/L (55-170) L 10/28/17 21:18 CK-MB (CK-2) 1.4 ng/mL (0.0-4.0) 10/28/17 21:18 CK-MB (CK-2) Rel Index 4.2 (0-4) H 10/28/17 21:18 Troponin T 0.062 ng/mL (0.00-0.029) H D 10/28/17 21:18 NT-Pro-B Natriuret Pep 5652 pg/mL (0-900) H 10/25/17 18:06 Triglycerides 59 mg/dL (2-149) 10/28/17 21:18 Cholesterol 107 mg/dL (50-199) 10/28/17 21:18 LDL Cholesterol Direct 75 mg/dL (50-130) 10/28/17 21:18 HDL Cholesterol 21 mg/dL (40-59) L 10/28/17 21:18 Cholesterol/HDL Ratio 5.09 % 10/28/17 21:18 Amylase 35 units/L (27-131) 10/31/17 05:40 Digoxin 2.7 ng/mL (0.9-2.0) H* 10/26/17 10:29
--- NOTE | 2017-11-04 11:45 | Progress Note ---
Assessment and Plan Assessment: Acute on chronic combined systolic and diastolic heart failure * clinically euvolemic Loculated right pleural effusion Dilated NICMP - EF 10-15% AICD in situ Hyperkalemia - improved HTN HLP Paroxysmal atrial fibrillation NSVT Plan: cont po lasix. Cont all other present cardiac management. pt is at intermediate to high risk for contemplated decortication procedure, but no absolute cardiac contraindication is present If pt is not going to have procedure would restart coumadin Assessment and plan reviewed with pt at bedside. Subjective Principal diagnosis: HF, pleural effusion Interval history: feels well Objective Vital Signs Temp Pulse Resp BP BP Pulse Ox 11/04/17 09:02 98.3 F 95 H 18 104/53 97 11/04/17 05:43 98.4 F 91 H 21 113/66 96 11/04/17 00:33 99.2 F 94 H 17 95/52 93 11/03/17 20:36 98.3 F 89 17 111/68 90 11/03/17 18:02 90 98 11/03/17 13:37 93/49 11/03/17 13:36 93/49 11/03/17 13:34 98 H 11/03/17 13:29 98 H - Physical Examination General: No Apparent Distress HEENT: Positive: PERRL, Normocephaly Neck: Positive: neck supple, Carotid Upstroke (2+ bilat). Negative: JVD/HJR, Bruit Neuro: Positive: Grossly Intact Abdomen: Positive: Soft. Negative: Tender Skin: Positive: Clear Musculoskeletal: Normal Range of Motion Extremities: Present: Other (peripheral pulses intact). Absent: Clubbing, Cyanosis - Labs and Meds Coagulation 11/04/17 Range/Units 05:50 PT 17.7 H (12.2-14.9) Sec. INR 1.38 H (0.87-1.13) CBC 11/04/17 Range/Units 05:50 WBC 8.5 (4.5-11.0) K/mm3 RBC 4.20 (3.65-5.03) M/mm3 Hgb 11.5 L (11.8-15.2) gm/dl Hct 35.5 (35.5-45.6) % Plt Count 311 (140-440) K/mm3 Lymph # 1.4 (1.2-5.4) K/mm3 [place] # 1.1 H (0.0-0.8) K/mm3 Eos # 0.1 (0.0-0.4) K/mm3 Baso # 0.0 (0.0-0.1) K/mm3 Comprehensive Metabolic Panel 11/04/17 Range/Units 05:50 Sodium 137 (137-145) mmol/L Potassium 4.9 (3.6-5.0) mmol/L Chloride 95.5 L (98-107) mmol/L Carbon Dioxide 31 H (22-30) mmol/L BUN 13 (9-20) mg/dL Creatinine 0.6 L (0.8-1.5) mg/dL Glucose 73 L (75-100) mg/dL Calcium 8.9 (8.4-10.2) mg/dL - Imaging and Cardiology Echo: report reviewed (06/2016: EF 10-15%, LA mod dilated, RA mildly dilated, trace TR, LV severely dilated, impaired relaxation, RV mildly dilated with normal systolic function) Chamber hypertrophy or enlargement: left ventricular hypertro Repolarization changes or abnormalities: repolarization abn secondary to ventricular hypertrophy
[2017-11-04] MEDS: VITAMIN C PO SCH (14:02)
[2017-11-04] MEDS: PEPCID PO SCH ×2 (14:02→23:22)
[2017-11-04] MEDS: APRESOLINE PO SCH ×2 (14:02→22:00)
[2017-11-04] MEDS: ZESTRIL PO SCH ×2 (14:03→22:00)
[2017-11-04] MEDS: LEVAQUIN PO SCH (14:03)
[2017-11-04] MEDS: LASIX PO SCH ×2 (14:04→17:42)
[2017-11-04] MEDS: COREG PO SCH ×2 (14:04→22:00)
[2017-11-04] MEDS: ANTIVERT PO PRN (14:04)
[2017-11-04] MEDS: ALLBEE WITH C PO SCH (14:44)
[2017-11-04] MEDS: COUMADIN PO SCH (17:42)
[2017-11-04] MEDS: PRAVACHOL PO SCH (17:42)
[2017-11-05] MEDS: LASIX PO SCH ×2 (06:54→17:36)
[2017-11-05 06:55] LABS: Basophils % (Auto) 0.3 % (0.0-1.8); Eosinophils # (Auto) 0.1 K/mm3 (0.0-0.4); Eosinophils % (Auto) 1.2 % (0.0-4.3); Hematocrit 35.2 % (35.5-45.6); Lymphocytes # (Auto) 1.2 K/mm3 (1.2-5.4); Lymphocytes % (Auto) 19.1 % (13.4-35.0); Mean Corpuscular HGB Conc 31 % (32-34); Mean Corpuscular Hemoglobin 27 pg (28-32); Mean Corpuscular Volume 85 fl (84-94); Monocytes # (Auto) 0.6 K/mm3 (0.0-0.8); Platelet Count 314 K/mm3 (140-440); Red Blood Count 4.16 M/mm3 (3.65-5.03); Red Cell Distribution Width 14.4 % (13.2-15.2)
[2017-11-05 07:02] LABS: INR 1.82 (0.87-1.13)
[2017-11-05 07:06] LABS: BUN/Creatinine Ratio 22; Blood Urea Nitrogen 13 mg/dL (9-20); Calcium 8.9 mg/dL (8.4-10.2); Hemolysis Index 43
[2017-11-05] MEDS: PEPCID PO SCH (09:30)
[2017-11-05] MEDS: LEVAQUIN PO SCH (09:30)
[2017-11-05] MEDS: NORVASC PO SCH (09:31)
[2017-11-05] MEDS: COREG PO SCH (09:31)
[2017-11-05] MEDS: VITAMIN C PO SCH (09:31)
[2017-11-05] MEDS: BETAPACE PO SCH (09:31)
[2017-11-05] MEDS: ZESTRIL PO SCH (09:31)
[2017-11-05] MEDS: ALLBEE WITH C PO SCH (09:31)
[2017-11-05] MEDS: APRESOLINE PO SCH (09:31)
--- NOTE | 2017-11-05 10:47 | Progress Note ---
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 Loculated right pleural effusion Patient with failed attempt thoracentesis yesterday. Only 3 mL of bloody fluid obtained. Follow up studies. Pulmonology recommends decortication. Cardiology reports an intermediate to high risk for contemplated decortication procedure, but no absolute cardiac contraindication is present. Therefore, we will consult CT surgery. Hyperkalemia - improved Supratherapeutic digoxin level - dig level 2.7 on admission; digoxin held Hypertension. Continue antihypertensive medications. Hyperlipidemia. Continue current management. Paroxysmal atrial fibrillation. Resume Coumadin NSVT Disposition. Continue inpatient management History Interval history: no new issues Hospitalist Physical - Constitutional Vitals: Temp Pulse Resp BP Pulse Ox 99.4 F 90 18 104/62 95 11/05/17 09:01 11/05/17 09:01 11/05/17 09:01 11/05/17 09:01 11/05/17 09:01 General appearance: Present: no acute distress, well-nourished - EENT Eyes: Present: PERRL, EOM intact ENT: hearing intact, clear oral mucosa, dentition normal - Neck Neck: Present: supple, normal ROM - Respiratory Respiratory effort: normal Respiratory: bilateral: CTA - Cardiovascular Rhythm: regular Heart Sounds: Present: S1 & S2. Absent: gallop, rub - Extremities Extremities: no ischemia, No edema, Full ROM - Abdominal General gastrointestinal: soft, non-tender, non-distended, normal bowel sounds - Integumentary Integumentary: Present: clear, warm, dry - Neurologic Neurologic: CNII-XII intact, moves all extremities Results - Labs CBC & Chem 7: 11/05/17 05:19 11/05/17 05:19 Labs: Laboratory Last Values WBC 6.4 K/mm3 (4.5-11.0) 11/05/17 05:19 RBC 4.16 M/mm3 (3.65-5.03) 11/05/17 05:19 Hgb 11.0 gm/dl (11.8-15.2) L 11/05/17 05:19 Hct 35.2 % (35.5-45.6) L 11/05/17 05:19 MCV 85 fl (84-94) 11/05/17 05:19 MCH 27 pg (28-32) L 11/05/17 05:19 MCHC 31 % (32-34) L 11/05/17 05:19 RDW 14.4 % (13.2-15.2) 11/05/17 05:19 Plt Count 314 K/mm3 (140-440) 11/05/17 05:19 Lymph % (Auto) 19.1 % (13.4-35.0) 11/05/17 05:19 [place] % (Auto) 10.0 % (0.0-7.3) H 11/05/17 05:19 Eos % (Auto) 1.2 % (0.0-4.3) 11/05/17 05:19 Baso % (Auto) 0.3 % (0.0-1.8) 11/05/17 05:19 Lymph # 1.2 K/mm3 (1.2-5.4) 11/05/17 05:19 [place] # 0.6 K/mm3 (0.0-0.8) 11/05/17 05:19 Eos # 0.1 K/mm3 (0.0-0.4) 11/05/17 05:19 Baso # 0.0 K/mm3 (0.0-0.1) 11/05/17 05:19 Seg Neutrophils % 69.4 % (40.0-70.0) 11/05/17 05:19 Seg Neutrophils # 4.4 K/mm3 (1.8-7.7) 11/05/17 05:19 PT 22.1 Sec. (12.2-14.9) H 11/05/17 05:19 INR 1.82 (0.87-1.13) H 11/05/17 05:19 APTT 39.4 Sec. (24.2-36.6) H 10/25/17 18:06 Sodium 139 mmol/L (137-145) 11/05/17 05:19 Potassium 4.8 mmol/L (3.6-5.0) 11/05/17 05:19 Chloride 98.5 mmol/L (98-107) 11/05/17 05:19 Carbon Dioxide 30 mmol/L (22-30) 11/05/17 05:19 Anion Gap 15 mmol/L 11/05/17 05:19 BUN 13 mg/dL (9-20) 11/05/17 05:19 Creatinine 0.6 mg/dL (0.8-1.5) L 11/05/17 05:19 Estimated GFR > 60 ml/min 11/05/17 05:19 BUN/Creatinine Ratio 22 % 11/05/17 05:19 Glucose 105 mg/dL (75-100) H 11/05/17 05:19 POC Glucose 102 (70-105) 10/25/17 20:07 Calcium 8.9 mg/dL (8.4-10.2) 11/05/17 05:19 Magnesium 2.10 mg/dL (1.7-2.3) 10/30/17 05:10 Total Creatine Kinase 33 units/L (55-170) L 10/28/17 21:18 CK-MB (CK-2) 1.4 ng/mL (0.0-4.0) 10/28/17 21:18 CK-MB (CK-2) Rel Index 4.2 (0-4) H 10/28/17 21:18 Troponin T 0.062 ng/mL (0.00-0.029) H D 10/28/17 21:18 NT-Pro-B Natriuret Pep 5652 pg/mL (0-900) H 10/25/17 18:06 Triglycerides 59 mg/dL (2-149) 10/28/17 21:18 Cholesterol 107 mg/dL (50-199) 10/28/17 21:18 LDL Cholesterol Direct 75 mg/dL (50-130) 10/28/17 21:18 HDL Cholesterol 21 mg/dL (40-59) L 10/28/17 21:18 Cholesterol/HDL Ratio 5.09 % 10/28/17 21:18 Amylase 35 units/L (27-131) 10/31/17 05:40 Digoxin 2.7 ng/mL (0.9-2.0) H* 10/26/17 10:29
--- NOTE | 2017-11-05 12:38 | Progress Note ---
Assessment and Plan Pt is s/p unsuccussful thoracentesis and may ultimately require decortication. However, pt is currently at intermediate to high cardiovascular risk for contemplated decortication procedure at this time and pt is currently clinically stable and reports near resolution of SOB. D/w Dr. Best. Given current clinical state, pt may discharge home from cardiology standpoint. Will plan for outpatient evaluation per [facility] CT surgery, Dr. Oviedo, for possible decortication. Follow up in our [place] office with Dr. Love on 11/07/2017 @ 1:45PM. The patient has been seen in conjunction with Dr. Love who agrees with the assessment and plan of care. - Patient Problems (1) Acute on chronic combined systolic and diastolic congestive heart failure Current Visit: Yes Status: Acute (2) Loculated pleural effusion Current Visit: Yes Status: Acute (3) Nonischemic dilated cardiomyopathy Current Visit: Yes Status: Chronic (4) Automatic implantable cardioverter-defibrillator in situ Current Visit: Yes Status: Chronic (5) Paroxysmal atrial fibrillation Current Visit: Yes Status: Chronic (6) HTN (hypertension) Current Visit: Yes Status: Chronic (7) Hyperlipidemia Current Visit: Yes Status: Chronic (8) Anticoagulated on Coumadin Current Visit: Yes Status: Chronic (9) NSVT (nonsustained ventricular tachycardia) Current Visit: Yes Status: Chronic Subjective Date of service: 11/05/17 Principal diagnosis: HF, pleural effusion Interval history: Pt sitting up in chair, states he is feeling well with SOB nearly resolved. Objective Last Vital Signs Temp 99.4 F 11/05/17 09:01 Pulse 92 H 11/05/17 10:00 Resp 18 11/05/17 10:00 BP 104/62 11/05/17 09:01 Pulse Ox 95 11/05/17 10:00 - Physical Examination General: No Apparent Distress HEENT: Positive: PERRL, Normocephaly Neck: Positive: neck supple, Carotid Upstroke (2+ bilat). Negative: JVD/HJR, Bruit Cardiac: Positive: Reg Rate and Rhythm, S1/S2 Lungs: Positive: Decreased Breath Sounds Neuro: Positive: Grossly Intact Abdomen: Positive: Soft. Negative: Tender Skin: Positive: Clear Musculoskeletal: Normal Range of Motion Extremities: Present: Other (peripheral pulses intact). Absent: Clubbing, Cyanosis - Labs and Meds Coagulation 11/05/17 Range/Units 05:19 PT 22.1 H (12.2-14.9) Sec. INR 1.82 H (0.87-1.13) CBC 11/05/17 Range/Units 05:19 WBC 6.4 (4.5-11.0) K/mm3 RBC 4.16 (3.65-5.03) M/mm3 Hgb 11.0 L (11.8-15.2) gm/dl Hct 35.2 L (35.5-45.6) % Plt Count 314 (140-440) K/mm3 Lymph # 1.2 (1.2-5.4) K/mm3 [place] # 0.6 (0.0-0.8) K/mm3 Eos # 0.1 (0.0-0.4) K/mm3 Baso # 0.0 (0.0-0.1) K/mm3 Comprehensive Metabolic Panel 11/05/17 Range/Units 05:19 Sodium 139 (137-145) mmol/L Potassium 4.8 (3.6-5.0) mmol/L Chloride 98.5 (98-107) mmol/L Carbon Dioxide 30 (22-30) mmol/L BUN 13 (9-20) mg/dL Creatinine 0.6 L (0.8-1.5) mg/dL Glucose 105 H (75-100) mg/dL Calcium 8.9 (8.4-10.2) mg/dL - Imaging and Cardiology Echo: report reviewed (06/2016: EF 10-15%, LA mod dilated, RA mildly dilated, trace TR, LV severely dilated, impaired relaxation, RV mildly dilated with normal systolic function) - Telemetry EKG Rhythm: Sinus Rhythm Chamber hypertrophy or enlargement: left ventricular hypertro Repolarization changes or abnormalities: repolarization abn secondary to ventricular hypertrophy
[2017-11-05 16:31] VITALS: BP 118/68
[2017-11-05] MEDS: PRAVACHOL PO SCH (17:36)
[2017-11-05] MEDS: COUMADIN PO SCH (17:36)
--- NOTE | 2017-11-06 15:09 | Event Note ---
Date: 11/06/17 Secondary to intemperate weather and call obligations, I am unable to see patient in person, I have reviewed records and films along with labs on this patient.I do not believe that the risk / benefit ratio would be justified for a formal decortication in this patient, I agree with Dr. Franco assessment. If this matter is to be pursued then I would recc evaluation [facility] with [facility]esthesia, I believe the patient's main issues with his shortness of breath have to do with is low EF and difficult to manage CHF. I will be happy to discuss this with the patient as an outpatient in my office.
== END 2017-11-05 18:47 | disposition home or self-care (01) | DRG 291 ==
LOC: ED 15:15 → 4A 19:58
PROVIDERS: ADMIT Internal Medicine; ATTEND Hospitalist
PROC: 0W993ZZ Drainage of Right Pleural Cavity, Percutaneous Approach (ICD-10-PCS; principal; 2017-11-02)
DX: I11.0 Hypertensive heart disease with heart failure (principal); J18.9 Pneumonia, unspecified organism; J96.01 Acute respiratory failure with hypoxia; J90 Pleural effusion, not elsewhere classified; I47.2 Ventricular tachycardia; Z95.810 Presence of automatic (implantable) cardiac defibrillator; I25.10 Atherosclerotic heart disease of native coronary artery without angina pectoris; I25.2 Old myocardial infarction; Z79.899 Other long term (current) drug therapy; E87.5 Hyperkalemia; Z82.49 Family history of ischemic heart disease and other diseases of the circulatory system; I48.0 Paroxysmal atrial fibrillation; I50.43 Acute on chronic combined systolic (congestive) and diastolic (congestive) heart failure; E78.5 Hyperlipidemia, unspecified; I42.0 Dilated cardiomyopathy
CPT/HCPCS: 32555; 36415; 71045; 71046; 71250; 80048; 80061; 80162; 82150; 82550; 82553; 82962; 83735; 83880; 84132; 84484; 85025; 85027; 85610; 85730; 87102; 87116; 93005; 93010; 94760; 96374; 96375; A9270-GY; J0456; J0696; J1815; J1940; J1956; J7050